=== PATIENT | male | born 1970 ===

== ENCOUNTER 2020-07-25 08:00 | Outpatient (REF) | payer OTHER, SELFPAY ==
[2020-07-25 09:30] LABS: Alanine Aminotransferase 21 U/L (0-40); Albumin Level 4.5 g/dL (3.5-5.0); Alkaline Phosphatase 97 U/L (39-117); Anion Gap 15 (12-20); Aspartate Amino Transferase 17 U/L (5-37); Bilirubin Total 0.6 mg/dL (0.0-1.0); Blood Urea Nitrogen 12 mg/dL (9-16); Calcium 9.3 mg/dL (8.4-10.2); Carbon Dioxide 24 mmol/L (22-29); Chloride 105 mmol/L (96-108); Cholesterol 149 mg/dL; Estimated Glomerular Filt Rate > 60; Glucose Fasting 97 mg/dL (60-99); HDL Cholesterol 38 mg/dL; LDL Cholesterol Calculated 93 mg/dl; Potassium 4.2 mmol/l (3.3-5.1); Sodium 140 mmol/L (135-145); Total Protein 6.9 g/dL (6.5-8.0); Triglycerides 93 mg/dL
== END 2020-07-25 08:01 | disposition home or self-care (01) ==
LOC: HO.LAB 08:00
PROVIDERS: Visit Provider Internal Medicine
DX: I10 Essential (primary) hypertension (principal)
CPT/HCPCS: 80053; 80061

== ENCOUNTER → 2020-07-27 07:38 | Outpatient (REF) | payer OTHER, SELFPAY ==
--- NOTE | 2020-07-27 07:43 | CA_ITS ---
Acquisition Time: 2020-07-27 08:54:25 Total Exercise Time: 00:10:11 Test Indications: Suspected Angina Medications: AMLODIPINE CITALOPRAM Protocol: DARRYL Max HR: 179 BPM 104% of Pred: 172 BPM Max BP: 152/064 mmHG Max Work Load: 12.0 METS Exercise stress test using Darryl protocol total of 10 min 11 sec. METS 12.0, MHR up to 179. Pt tolerated well, denies any anginal sx. EKG without any arrhythmia, no ischemic changes. Normotensive response to exercise. Test reviewed with Dr. Martin Referred By: Courtney Osborne Overread By: Kylie Wyatt
== END ==
LOC: HO.CARD 07:38
PROVIDERS: PCP Internal Medicine; Visit Provider Internal Medicine
DX: I20.8 Other forms of angina pectoris (principal)
CPT/HCPCS: 93017

== ENCOUNTER 2021-01-22 07:23 | Outpatient (REF) | payer OTHER, SELFPAY | END 2021-01-22 07:24 | disposition home or self-care (01) | LOC: HO.LAB 07:23 | PROVIDERS: PCP Internal Medicine; Visit Provider Internal Medicine | DX: Z20.822 Contact with and (suspected) exposure to COVID-19 (principal) | CPT/HCPCS: C9803; U0003; U0005 ==

== ENCOUNTER → 2021-05-03 10:57 | Outpatient (BNVA) | payer OTHER, SELFPAY | PROVIDERS: PCP Internal Medicine; Referring Provider Internal Medicine; Visit Provider Nurse Practitioner ==

== ENCOUNTER 2021-07-02 09:43 | Outpatient (REF) | payer OTHER, SELFPAY ==
[2021-07-02 10:00] LABS: MANUAL DIFF FLAG NO
[2021-07-02 10:51] LABS: Basophils Percent Auto 0.4 % (0-2); Eosinophils Absolute Auto 0.1 X10*3/uL (0.0-0.4); Eosinophils Percent Auto 0.9 % (0-4); Hematocrit 42.3 % (42.0-52.0); Hemoglobin 15.3 g/dl (14.0-18.0); Imm Gran Abs Auto 0.01 X10*3/uL (0.00-0.03); Imm Gran Pct Auto 0.1 % (0.0-0.4); Lymphocytes Absolute Auto 2.1 X10*3/uL (1.2-4.9); Lymphocytes Percent Auto 30.2 % (20-40); Mean Corpuscular HGB Conc 36.2 g/dl (31.0-36.0); Mean Corpuscular Hemoglobin 31.9 pg (27.0-33.0); Mean Corpuscular Volume 88.3 fL (80.0-98.0); Monocytes Absolute Auto 0.4 X10*3/uL (0.1-1.2); Monocytes Percent Auto 5.7 % (2-11); Neutrophils Absolute Auto 4.4 x10*3/uL (2.0-8.3); Neutrophils Percent Auto 62.7 % (45-73); Platelet Count 236 X10*3/uL (160-400); Red Blood Count 4.79 X10*6/uL (4.60-5.80); Red Cell Distribution Width 11.5 % (11.0-16.0)
[2021-07-02 11:21] LABS: Alanine Aminotransferase 25 U/L (0-40); Albumin Level 4.3 g/dL (3.5-5.0); Alkaline Phosphatase 110 U/L (39-117); Anion Gap 12 (12-20); Aspartate Amino Transferase 26 U/L (5-37); Bilirubin Total 0.6 mg/dL (0.0-1.0); Blood Urea Nitrogen 24 mg/dL (9-16); Calcium 9.2 mg/dL (8.4-10.2); Carbon Dioxide 26 mmol/L (22-29); Chloride 104 mmol/L (96-108); Estimated Glomerular Filt Rate > 60; Glucose Random 107 mg/dL (60-115); Potassium 4.4 mmol/L (3.3-5.1); Sodium 138 mmol/L (135-145); Total Protein 6.6 g/dL (6.5-8.0)
== END 2021-07-02 09:44 | disposition home or self-care (01) ==
LOC: HO.LAB 09:43
PROVIDERS: PCP Internal Medicine; Visit Provider Nurse Practitioner
DX: Z12.11 Encounter for screening for malignant neoplasm of colon (principal)
CPT/HCPCS: 36415; 80053; 85025

== ENCOUNTER 2021-07-18 07:28 | Day surgery (SDC) | payer OTHER, SELFPAY ==
[2021-07-10 14:23] VITALS: BMI 26.6
--- NOTE | 2021-07-17 10:26 | HO.ANESPROP2 ---
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 (Acute) RODRIGUEZ (generalized anxiety disorder) (Acute) Alcoholism (Acute) Severe major depression with psychotic features (Acute) Trigger finger of right hand (Acute) Past Medical History Medical History Alcoholism Angina at rest Essential hypertension RODRIGUEZ (generalized anxiety disorder) History of alcohol abuse 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 Brother No problems noted. Surgical History Surgical History H/O umbilical hernia repair History of esophagogastroduodenoscopy (EGD) Lipoma Social History Social History Housing: House Alcohol intake: former Year quit: 2020 Patient Tobacco Use Status: Never used Tobacco e-Cigarette/Vaping Use: Never Used Second Hand Smoke Exposure: No Are you DNR?: No Advance Directives: No Advance Directives Information Provided: Yes Advance Directives on File: No service: No Current occupational status: employed Current occupational exposures/hazards: No Meds Allergies Allergy/AdvReac Type Severity Reaction Status Date / Time No Known Allergies Allergy Verified 07/18/21 07:33 [No Known Allergies*] Exam Exam Date and Time: July 17, 2021 1026 Height,Weight and Vital Signs: Height 5 ft 6 in Weight 74.843 kg Pertinent Lab Results Pertinent Lab Results: Laboratory Tests 07/02/21 07/02/21 09:57 09:57 WBC 7.0 Hgb 15.3 Hct 42.3 Plt Count 236 Sodium 138 Potassium 4.4 Chloride 104 Carbon Dioxide 26 BUN 24 H D Creatinine 1.01 Estimated GFR > 60 Random Glucose 107 Calcium 9.2 Total Bilirubin 0.6 AST 26 D ALT 25 Alkaline Phosphatase 110 Total Protein 6.6 Albumin 4.3 Assessment and Plan Assessment Anesthesia Assessment: Chart Reviewed Documented by User: Rey Richardson MD 07/18/21 08:05 PMFSH Past Medical History Medical History Alcoholism Angina at rest Essential hypertension RODRIGUEZ (generalized anxiety disorder) History of alcohol abuse 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 Brother No problems noted. Surgical History Surgical History H/O umbilical hernia repair History of esophagogastroduodenoscopy (EGD) Lipoma Social History Social History Housing: House Alcohol intake: former Year quit: 2020 Patient Tobacco Use Status: Never used Tobacco e-Cigarette/Vaping Use: Never Used Second Hand Smoke Exposure: No Are you DNR?: No Advance Directives: No Advance Directives Information Provided: Yes Advance Directives on File: No service: No Current occupational status: employed Current occupational exposures/hazards: No Meds Allergies Allergy/AdvReac Type Severity Reaction Status Date / Time No Known Allergies Allergy Verified 07/18/21 07:33 [No Known Allergies*] Exam Airway Mallampati Class: II TM Dist: >3cm Neck ROM: Full
[2021-07-18 07:48] VITALS: BP 136/82; PULSE 80; RESP 20; TEMP 36.6; O2SAT 97
[2021-07-18] MEDS: Lactated Ringers 1,000 ML 100 ML IVCONT (07:57)
--- NOTE | 2021-07-18 08:33 | P.HPSUR_ITS ---
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 Severe major depression with psychotic features Trigger finger of right hand Vasectomy evaluation) History of Previous Operations: Relevant previous surgery/procedure and date(s) (H/O umbilical hernia repair History of esophagogastroduodenoscopy (EGD) Lipoma) Allergies: Allergies Allergy/AdvReac Type Severity Reaction Status Date / Time No Known Allergies Allergy Verified 07/18/21 07:33 [No Known Allergies*] Review of Systems Sugical H&P ROS: Negative: Constitution, Cardiovascular, Respiratory, Neurological, Psychiatric, Hem-Onc, Allergic/Immunologic, Gastrointestinal, Genitourinary, Musculoskeletal, Integumentary, Endocrine and Ey es/Ears/Nose/Throat Exam Surgical H&P Exam: Normal: HEENT, Normal: Heart, Normal: Lungs, Normal: Extremities, Normal: Abdomen, Normal: Skin and Normal: Neurological Plan Diagnosis/Plan: Unchanged I have reviewed the history and physical and performed a pertinent physical examination on my patient. No changes have occurred unless specified.
--- NOTE | 2021-07-18 08:34 | P.BOP_ITS ---
Brief Operative Note Date of Service: 07/18/21 Pre-op diagnosis: screen colon Post-op diagnosis: same Procedure: see op note Surgeon: Fe Alford MD Anesthesia: MAC Was an Radiation Oncology Manager used for this Procedure?: No Estimated blood loss (mL): 0 Condition: stable Disposition: PACU
--- NOTE | 2021-07-18 08:35 | P.OP_ITS ---
Operative Note Operative Note Date of Service: 07/18/21 Narrative: Operative Information Procedure Description: Colonoscopy COLONOSCOPY Instrument: Olympus variable stiffness pediatric scope 190L Colonoscopy Monitoring: Vital signs and clinical assessment, continuous EKG monitoring, Pulse oximetry, Carbon Dioxide monitoring and blood pressure monitoring were done throughout the procedure. Colon withdrawal time was 20 minutes. Procedure: The patient was placed in the left lateral decubitis position and pre-procedure medications were administered. After a digital rectal examination of the ano-rectum, the video colonoscope was inserted into the rectum and advanced through the colon to the cecum/TI. The colonoscope was slowly withdrawn in a retrograde panoramic fashion and the colon mucosa was carefully examined including a retroflexed view of the rectum. Findings and interventions are described below. Procedure Difficulty:easy Findings: Terminal Ileum-normal Cecum: 10 mm sessile polyp raised with orise and removed with cold snare but not retrieved Ascending Colon: 12 mm sessile polyp in distal area, removed with cold snare Transverse Colon -normal Descending Colon:normal Sigmoid Colon: distal sigmoid with 20 mm pedunculated polyp. The base was injected with few cc of epinephrine and then removed with hot snare. 3 clips applied to the base to redcue risk of post polypectomy bleeding Rectum: Retroflexion with small internal hemorrhoids, grade I, 14 mm semi pedunculated polyp remvoed with cold snare and x 2 clips applied for hemostasis Anorectum - normal Colon preparation: [place] Bowel Preparation Scale Right colon; 2 Transverse colon: 2 Left colon; 2 (0 = Unprepared colon segment with mucosa not seen due to solid stool that cannot be cleared. 1 = Portion of mucosa of the colon segment seen, but other areas of the colon segment not well seen due to staining, residual stool and/or opaque liquid. 2 = Minor amount of residual staining, small fragments of stool and/or opaque liquid, but mucosa of colon segment seen well. 3 = Entire mucosa of colon segment seen well with no residual staining, small fragments of stool or opaque liquid) Impression and Post Procedure Diagnosis: polyps internal hemorrhoids Plan: High fiber diet leaflet Avoid straining at stool, epsom salts and sitz bath, anusol supps or cream Repeat Colonoscopy in 6-12 months or earlier if clinically indicated avoid nsaids and aspirin for 5 days Above findings were reviewed with the patient and relevant handouts were provided if indicated.
[2021-07-18 09:18] VITALS: BP 100/53; PULSE 79; RESP 20; TEMP 36.2; O2SAT 100
[2021-07-18 09:34] VITALS: BP 106/68; PULSE 76; RESP 16; TEMP 36.2; O2SAT 99
== END 2021-07-18 09:56 | disposition home or self-care (01) ==
PROVIDERS: PCP Internal Medicine; Visit Provider Internal Medicine Gastroenterology
PROC: 0DJD8ZZ Inspection of Lower Intestinal Tract, Via Natural or Artificial Opening Endoscopic (ICD-10-PCS; CPT 45378; principal; 2021-07-18 08:30)
DX: Z12.11 Encounter for screening for malignant neoplasm of colon (principal); D12.2 Benign neoplasm of ascending colon; D12.8 Benign neoplasm of rectum; K63.5 Polyp of colon; K64.0 First degree hemorrhoids; I10 Essential (primary) hypertension; F33.3 Major depressive disorder, recurrent, severe with psychotic symptoms; F10.20 Alcohol dependence, uncomplicated
CPT/HCPCS: 45385; 45381; 88305; J0171

== ENCOUNTER 2021-12-26 09:13 | Outpatient (REF) | payer OTHER, SELFPAY ==
[2021-12-26 09:46] LABS: MANUAL DIFF FLAG NO
[2021-12-26 10:52] LABS: Basophils Absolute Auto 0.1 X10*3/uL (0.0-0.2); Basophils Percent Auto 0.8 % (0-2); Eosinophils Absolute Auto 0.1 X10*3/uL (0.0-0.4); Eosinophils Percent Auto 1.1 % (0-4); Hematocrit 45.5 % (42.0-52.0); Hemoglobin 16.6 g/dl (14.0-18.0); Imm Gran Abs Auto 0.02 X10*3/uL (0.00-0.03); Imm Gran Pct Auto 0.3 % (0.0-0.4); Lymphocytes Absolute Auto 1.9 X10*3/uL (1.2-4.9); Lymphocytes Percent Auto 29.3 % (20-40); Mean Corpuscular HGB Conc 36.5 g/dl (31.0-36.0); Mean Corpuscular Volume 84.9 fL (80.0-98.0); Mean Platelet Volume 10.8 fL (9.4-12.4); Monocytes Absolute Auto 0.4 X10*3/uL (0.1-1.2); Monocytes Percent Auto 6.4 % (2-11); Neutrophils Absolute Auto 4.1 x10*3/uL (2.0-8.3); Neutrophils Percent Auto 62.1 % (45-73); Platelet Count 269 X10*3/uL (160-400); Red Blood Count 5.36 X10*6/uL (4.60-5.80); Red Cell Distribution Width 12.2 % (11.0-16.0); White Blood Count 6.6 X10*3/uL (4.8-10.8)
[2021-12-26 11:14] LABS: Alanine Aminotransferase 32 U/L (0-40); Albumin Level 4.2 g/dL (3.5-5.0); Alkaline Phosphatase 92 U/L (39-117); Anion Gap 13 (12-20); Aspartate Amino Transferase 26 U/L (5-37); Bilirubin Total 0.9 mg/dL (0.0-1.0); Blood Urea Nitrogen 22 mg/dL (9-16); Calcium 9.5 mg/dL (8.4-10.2); Carbon Dioxide 24 mmol/L (22-29); Chloride 104 mmol/L (96-108); Cholesterol 134 mg/dL; Estimated Glomerular Filt Rate > 60; Glucose Fasting 88 mg/dL (60-99); HDL Cholesterol 32 mg/dL; LDL Cholesterol Calculated 87 mg/dl; Potassium 4.4 mmol/L (3.3-5.1); Sodium 137 mmol/L (135-145); Total Protein 6.6 g/dL (6.5-8.0); Triglycerides 79 mg/dL
[2021-12-26 12:50] LABS: Folate 18.7 ng/mL (> or = 4.0); Vitamin B12 1058 pg/mL (200-900)
[2022-01-02 12:39] LABS: Vitamin B1 12 nmol/L (8-30)
== END 2021-12-26 09:14 | disposition home or self-care (01) ==
LOC: HO.LAB 09:13
PROVIDERS: PCP Internal Medicine; Visit Provider Internal Medicine
DX: Z00.00 Encounter for general adult medical examination without abnormal findings (principal); F10.20 Alcohol dependence, uncomplicated; Z13.220 Encounter for screening for lipoid disorders
CPT/HCPCS: 36415; 80053; 80061; 82607; 82746; 84425; 85025

== ENCOUNTER 2022-11-17 09:01 | Outpatient (REF) | payer OTHER, SELFPAY ==
[2022-11-17 10:43] LABS: Alanine Aminotransferase 21 U/L (0-40); Albumin Level 4.1 g/dL (3.5-5.0); Alkaline Phosphatase 108 U/L (39-117); Anion Gap 10 (12-20); Aspartate Amino Transferase 19 U/L (5-37); Bilirubin Total 0.9 mg/dL (0.0-1.0); Blood Urea Nitrogen 13 mg/dL (9-16); Carbon Dioxide 27 mmol/L (22-29); Chloride 106 mmol/L (96-108); Cholesterol 159 mg/dL; Estimated Glomerular Filt Rate > 60; Glucose Fasting 94 mg/dL (60-99); HDL Cholesterol 35 mg/dL; LDL Cholesterol Calculated 110 mg/dl; Potassium 4.2 mmol/L (3.3-5.1); Sodium 139 mmol/L (135-145); Total Protein 6.2 g/dL (6.5-8.0); Triglycerides 71 mg/dL
== END 2022-11-17 09:02 | disposition home or self-care (01) ==
LOC: HO.LAB 09:01
PROVIDERS: PCP Internal Medicine; Visit Provider Internal Medicine
DX: Z00.00 Encounter for general adult medical examination without abnormal findings (principal); E78.5 Hyperlipidemia, unspecified
CPT/HCPCS: 36415; 80053; 80061

== ENCOUNTER 2023-04-28 10:14 | Outpatient (AMB) | payer BC, SELFPAY ==
[2023-04-28 10:18] VITALS: BP 124/86; PULSE 71; O2SAT 99; BMI 27.0
--- NOTE | 2023-04-28 10:18 | A.OFFPC_ITS ---
Vital Signs 04/28/23 10:18 Height 5 ft 6 in Weight 167 lb BMI 27.0 BP 124/86 Blood Pressure Location Lt brachial Position Sitting Pulse 71 Pulse Source Pulse Oximeter Temp Source Skin Pulse Oximetry (%) 99 Oxygen Delivery Method Room Air Intake Visit Reasons: Discuss Personal Matters Allergies No Known Allergies [No Known Allergies*] Allergy (Verified 04/28/23 10:26) Medication List - Last Reconciled 04/28/23 by VARUN Delacruz trazodone 100 mg PO BEDTIME PRN 90 days Tobacco use date assessed: 04/28/23 Dental Screening Dental Screen Date: 04/28/23 Did you have a dental visit in the last 12 months?: Yes Did you have a dental problem in the last 6 months where you did not have access to dental care?: No Was dental information given to patient?: Patient has dentist HPI Discuss Personal Matters HPI Details Patient is a 53-year-old male who presents today to discuss erectile dysfunction for the past [address] Dowd. Medical history significant for anxiety and insomnia. Patient reports he was not sexually active for the past 5 years and now he has a partner, and reports erectile dysfunction for the past 5 months. He reports that he is unable to perform about 3-5 times per week. Reports using [id number] medications with minimal improvement although he would like to talk with professional about this. Denies any cardiac conditions. Denies any urinary symptoms or penile discharge. 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 Brother No problems noted. Social History Housing: House Alcohol intake: former Year quit: 2020 Patient Tobacco Use Status: Never used Tobacco e-Cigarette/Vaping Use: Never Used Second Hand Smoke Exposure: No service: No Current occupational status: employed Current occupational exposures/hazards: No Cognitive needs: No Hearing needs: No Vision needs: No Questionnaire Thrive Questionnaire Date Thrive assessed: 11/17/22 AUDIT C Alcohol Use Questionnaire (AUDIT-C) 1. How often do you have a drink containing alcohol?: Never Total Score: 0 Score Reviewed/Action Taken: No RODRIGUEZ-7 AMB Questionnaire RODRIGUEZ-7 Date RODRIGUEZ - 7 assessed: 11/17/22 Source: Developed by Drs. Willi Gibbons, Davina Pope, Antoine Gross and colleagues, with an educational tray from [id number]. Review of Systems Const Denies body aches, Denies chills, Denies fatigue, Denies fever(s) and Denies headache(s) Eyes Denies change in vision ENT Denies dizziness, Denies otalgia, Denies headache(s), Denies nasal discharge, Denies sinus pain and Denies sore throat Card Denies chest pain, Denies edema, Denies lightheadedness and Denies dyspnea Resp Denies cough, Denies dyspnea and Denies wheezing GI Denies abdominal pain Denies dysuria Musc Denies myalgias, Denies numbness and Denies tingling Skin/Breast Denies rash Neuro Denies dizziness, Denies headache(s), Denies numbness and Denies tingling Endo Denies fatigue Aller/Immun Denies wheezing Physical exam (Primary Care) Vital Signs: Last Vital Signs Pulse 71 04/28/23 10:18 BP 124/86 04/28/23 10:18 Pulse Ox 99 04/28/23 10:18 Oxygen Delivery Method Room Air 04/28/23 10:18 BMI result Body Mass Index 27.0 Tobacco/Smoking Status: Tobacco use Status Tobacco use date assessed 04/28/23 04/28/23 10:21 Patient Tobacco Use Status Never used Tobacco 04/28/23 10:21 e-Cigarette/Vaping Use Never Used 04/28/23 10:21 Thrive Assessment: Date of Thrive Assessment Date Thrive assessed 11/17/22 04/28/23 10:21 Const General: cooperative and no acute distress Orientation/consciousness: patient oriented x3 HENMT Head: Yes normocephalic and Yes atraumatic Mouth: oropharynx normal and moist mucous membranes Throat: Yes posterior oropharynx normal Eyes General: appearance normal, both eyes and all related structures Neck Neck: Yes normal visual inspection, Yes full ROM and Yes no lymphadenopathy Resp Effort & Inspection: normal respiratory effort and able to speak in complete sentences Auscultation: clear to auscultation bilaterally, no crackles, no rales, no rhonchi and no wheezes Cardio Rate: regular rate Rhythm: regular rhythm Heart sounds: S1 normal heart sound present, S2 normal heart sound present and no murmurs GI Auscultation: normal bowel sounds Skin General skin exam: no rashes or lesions noted Neuro General: patient oriented x3 Gait exam (Neuro): Normal gait present Extrem General: Yes full ROM and No edema Assessment and Plan Assessment & Plan (1) Erectile dysfunction: Code(s): N52.9 - Male erectile dysfunction, unspecified Plan: Will check testosterone level. Start Viagra daily p.r.n.-educated about possible adverse reactions and when to notify provider or go to the emergency department. Patient agreed with the plan. Patient was educated not to take any [id number] medications for erectile dysfunction when taking Viagra. Orders: Orders Testosterone, Total Today N52.9 - Male erectile dysfunction, unspecified Medications: New sildenafil (Viagra) administer 30 minutes to 4 hours before activity 25 mg PO DAILY PRN 30 tabs 0RF sexual activity N52.9 - Male erectile dysfunction, unspecified Coding Level of Care Code Est Pt Level 3 (11726) Diagnoses Erectile dysfunction N52.9
== END 2023-04-28 11:32 | disposition home or self-care (01) ==
PROVIDERS: PCP Internal Medicine; Visit Provider Nurse Practitioner Family
DX: N52.9 Male erectile dysfunction, unspecified (principal)
CPT/HCPCS: 99213

== ENCOUNTER 2023-04-28 10:50 | Outpatient (REF) | payer BC, SELFPAY ==
[2023-05-02 16:08] LABS: Testosterone, Total 388 ng/dL (250-1100)
== END 2023-04-28 10:51 | disposition home or self-care (01) ==
LOC: HO.LAB 10:50
PROVIDERS: PCP Internal Medicine; Visit Provider Nurse Practitioner Family
DX: N52.9 Male erectile dysfunction, unspecified (principal)
CPT/HCPCS: 36415; 84403

== ENCOUNTER 2023-11-18 08:51 | Outpatient (AMB) | payer BC, SELFPAY ==
--- NOTE | 2023-11-18 08:53 | A.OFFPC_ITS ---
Vital Signs 11/18/23 08:55 Height 5 ft 6 in Weight 175 lb BMI 28.2 BP 122/86 Blood Pressure Location Lt brachial Position Sitting Intake Visit Reasons: PE Intake Note: Patient here for a physical exam Bladder Tier Required: No Accompanied by: Self / Same As Patient Allergies No Known Allergies [No Known Allergies*] Allergy (Verified 11/18/23 09:08) Medication List - Last Reconciled 11/18/23 by Courtney Osborne MD trazodone 100 mg PO BEDTIME PRN 90 days Tobacco use date assessed: 11/18/23 Dental Screening Dental Screen Date: 11/18/23 Did you have a dental visit in the last 12 months?: Yes Did you have a dental problem in the last 6 months where you did not have access to dental care?: No Was dental information given to patient?: Patient has dentist HPI HPI Comments History of Present Illness Details This is a 53-year-old male with alcoholism, insomnia due to alcohol and moderate major depression that comes for his physical exam. He was advised to cut down on his drinking alcohol and was referred to addiction Medicine. Insomnia stable with trazodone. Still has moderate major depression with occasional suicidal thoughts and Randy Viirdiana from Behavioral Health will talk with him today after his physical exam in the office. Denies any chest pain or shortness of breath. Last colonoscopy was 2020 and had to go back in 6-12 months but he did not. I will refer him again. 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 Brother No problems noted. Social History Housing: House Alcohol intake: current Alcohol intake frequency: a few times a week Alcohol type: beer Patient Tobacco Use Status: Never used Tobacco e-Cigarette/Vaping Use: Never Used Second Hand Smoke Exposure: No service: No Current occupational status: employed Current occupational exposures/hazards: No Cognitive needs: No Hearing needs: No Vision needs: No Questionnaire PHQ-9 Over the last 2 weeks, how often have you been bothered by any of the following problems? 1. Little interest or pleasure in doing things: more than half the days 2. Feeling down, depressed, or hopeless: more than half the days 3. Trouble falling or staying asleep, or sleeping too much: more than half the days 4. Feeling tired or having little energy: more than half the days 5. Poor appetite or overeating: more than half the days 6. Feeling bad about yourself - or that you are a failure or have let yourself or your family down: more than half the days 7. Trouble concentrating on things, such as reading the newspaper or watching television: more than half the days 8. Moving or speaking so slowly that other people could have noticed. Or the opposite - being so fidgety or restless that you have been moving around a lot more than usual: more than half the days 9. Thoughts that you would be better off or of hurting yourself in some way: several days Total score: 17 Depression Screening Interpretation: Positive (occasional suicidal thoughts) Depression Screening Follow-up: Existing condition Depression Screening Done: Yes 95275 - PHQ-9 Billing: Yes Source: Developed by Drs. Willi Gibbons, Davina Pope, Antoine Gross and colleagues, with an educational tray from [employer]. Thrive Questionnaire Date Thrive assessed: 11/18/23 I am a: Patient What is your living situation today?: I have a steady place to live Within the past 12 months, did the food you bought not last and you didn't have the money to get more?: Never true Within the past 12 months, did you worry whether your food would run out before you got money to buy more?: Never true Do you have trouble paying for medicines?: No Do you have trouble getting transportation to medical appointments?: No Do you have trouble paying your heating and electricity bill?: No Do you have trouble taking care of your child, family member or friend?: No Do you have trouble with day-to-day activities such as bathing, preparing meals, shopping, managing finances, etc.?: No Are you currently unemployed and looking for a job?: No Are you interested in more education?: No Please select the resources that you would like help with: None Currently or been in a relationship where the following occur: no concerns reported THRIVE Score: 0 AUDIT C Alcohol Use Questionnaire (AUDIT-C) 1. How often do you have a drink containing alcohol?: 4 or more times a week 2. How many drinks containing alcohol do you have on a typical day when you are drinking?: 5 or 6 3. How often do you have six or more drinks on one occasion?: Weekly Total Score: 9 Score Reviewed/Action Taken: Yes RODRIGUEZ-7 AMB Questionnaire RODRIGUEZ-7 Date RODRIGUEZ - 7 assessed: 11/18/23 Feeling nervous, anxious, or on edge: 2 = More than half the days Not being able to stop or control worryin = More than half the days Worrying too much about different things: 2 = More than half the days Trouble relaxin = More than half the days Being so restless that it is hard to sit still: 1 = Several days Becoming easily annoyed or irritable: 2 = More than half the days Feeling afraid as if something awful might happen: 2 = More than half the days Total RODRIGUEZ-7 score (0-4 normal; 5-9 mild; 10-14 moderate; 15-21 severe): 13 Source: Developed by Drs. Willi Gibbons, Davina Pope, Antoine Gross and colleagues, with an educational tray from [employer]. RODRIGUEZ-7 Assessment Billing RODRIGUEZ-7 Assessment Tool: RODRIGUEZ-7 Assessment 80215 Review of Systems Const All systems reviewed & are unremarkable except as noted in HPI and below Eyes Reports no additional complaints, Denies change in vision and Denies other visual disturbances Card Denies chest pain at rest, Denies chest pain with activity, Denies edema, Denies irregular heart rhythm, Denies claudication, Denies dyspnea, Denies dyspnea on exertion, Denies orthopnea, Denies paroxysmal nocturnal dyspnea and Denies slow heart rate Resp Denies cough, Denies dyspnea and Denies dyspnea on exertion GI Denies abdominal pain, Denies change in bowel habits, Denies excessive flatus, Reports diarrhea, Denies nausea and Denies vomiting Denies urinary hesitancy, Denies urinary incontinence and Denies urinary urgency Psych Reports abnormal sleep pattern and Reports depression Physical exam (Primary Care) Vital Signs: Last Vital Signs BP 122/86 11/18/23 08:55 BMI result Body Mass Index 28.2 Tobacco/Smoking Status: Tobacco use Status Tobacco use date assessed 11/18/23 11/18/23 09:03 Patient Tobacco Use Status Never used Tobacco 11/18/23 09:03 e-Cigarette/Vaping Use Never Used 11/18/23 09:03 PHQ-9: PHQ-9 Score PHQ-9: Total score 17 11/18/23 09:13 Depression Screening Interpretation: Positive (occasional suicidal thoughts) Dep ression Screening Follow-up: Existing condition Thrive Assessment: Date of Thrive Assessment Date Thrive assessed 11/18/23 11/18/23 09:03 Currently or been in a relationship where the following occur: no concerns reported Const Orientation/consciousness: patient oriented x3 HENMT Head: Yes normal to inspection, Yes normocephalic and Yes atraumatic Ears: external ears normal Eyes General: appearance normal, both eyes and all related structures Eyelids: Yes eyelids normal Conjunctivae: conjunctivae normal Neck Neck: Yes normal visual inspection and Yes supple Resp Effort & Inspection: normal respiratory effort Auscultation: clear to auscultation bilaterally Cardio Jugular venous distension: no JVD Rate: regular rate Rhythm: regular rhythm Heart sounds: S1 normal heart sound present and S2 normal heart sound present GI Inspection: Yes normal to inspection Palpation (GI): Soft to palpation and nontender Auscultation: normal bowel sounds Skin General skin exam: no rashes or lesions noted Neuro General: patient oriented x3 and no focal motor deficits Extrem General: Yes full ROM Psych Appearance: grossly normal Affect: Sad affect present Assessment and Plan Assessment & Plan (1) Physical exam: Code(s): Z00.00 - Encounter for general adult medical examination without abnormal findings Plan: Repeat in a year. (2) Alcoholism: Code(s): F10.20 - Alcohol dependence, uncomplicated Plan: Was advised to cut down on drinking alcohol. Was referred to addiction Medicine. 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 (4) Moderate major depression: Code(s): F32.1 - Major depressive disorder, single episode, moderate Plan: Saw by Behavioral Health in office today. Orders: Orders Comprehensive [place]. Panel Fast Today Z00.00 - Encounter for general adult medical examination without abnormal findings Lipid Panel Today Z00.00 - Encounter for general adult medical examination without abnormal findings Vitamin B1 Today F10.20 - Alcohol dependence, uncomplicated US abdomen comp w elastography Today F10.20 - Alcohol dependence, uncomplicated Complete Blood Count Auto Diff Today F10.20 - Alcohol dependence, uncomplicated Referrals Addiction Medicine Referral F10.20 - Alcohol dependence, uncomplicated Open Access Screening Colonoscopy Referral Z12.11 - Encounter for screening for malignant neoplasm of colon Coding Level of Care Code Est Pt Prev Care 40-64y(67285) Diagnoses Physical exam Z00.00 Alcoholism F10.20 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
[2023-11-18 08:55] VITALS: BP 122/86; BMI 28.2
== END 2023-11-18 09:32 | disposition home or self-care (01) ==
PROVIDERS: Visit Provider Internal Medicine
DX: Z00.00 Encounter for general adult medical examination without abnormal findings (principal); F10.982 Alcohol use, unspecified with alcohol-induced sleep disorder; F32.1 Major depressive disorder, single episode, moderate
CPT/HCPCS: 99396

== ENCOUNTER 2023-11-23 07:39 | Outpatient (REF) | payer BC, SELFPAY ==
[2023-11-23 08:32] LABS: Basophils Percent Auto 0.6 % (0-2); Eosinophils Absolute Auto 0.1 X10*3/uL (0.0-0.4); Eosinophils Percent Auto 0.9 % (0-4); Hematocrit 41.5 % (42.0-52.0); Imm Gran Abs Auto 0.04 X10*3/uL (0.00-0.03); Imm Gran Pct Auto 0.6 % (0.0-0.4); Lymphocytes Absolute Auto 2.6 X10*3/uL (1.2-4.9); Lymphocytes Percent Auto 40.7 % (20-40); MANUAL DIFF FLAG SCAN; Mean Corpuscular Volume 87.2 fL (80.0-98.0); Monocytes Absolute Auto 0.4 X10*3/uL (0.1-1.2); Monocytes Percent Auto 5.7 % (2-11); Neutrophils Absolute Auto 3.3 x10*3/uL (2.0-8.3); Neutrophils Percent Auto 51.5 % (45-73); Platelet Count 247 X10*3/uL (160-400); Red Blood Count 4.76 X10*6/uL (4.60-5.80); Red Cell Distribution Width 12.1 % (11.0-16.0); SCAN SMEAR FLAG 1; White Blood Count 6.5 X10*3/uL (4.8-10.8)
[2023-11-23 08:35] LABS: Alanine Aminotransferase 43 U/L (0-40); Albumin Level 4.1 g/dL (3.5-5.0); Alkaline Phosphatase 104 U/L (39-117); Anion Gap 13 (12-20); Aspartate Amino Transferase 30 U/L (5-37); Bilirubin Total 0.9 mg/dL (0.0-1.0); Blood Urea Nitrogen 17 mg/dL (9-16); Carbon Dioxide 24 mmol/L (22-29); Chloride 103 mmol/L (96-108); Cholesterol 191 mg/dL (<200); Estimated Glomerular Filt Rate > 60; Glucose Fasting 106 mg/dL (60-99); HDL Cholesterol 30 mg/dL (>40); Potassium 3.7 mmol/L (3.3-5.1); Sodium 136 mmol/L (135-145); Total Protein 6.9 g/dL (6.5-8.0); Triglycerides 904 mg/dL (<150)
[2023-11-23 08:52] LABS: Hemoglobin 13.9 g/dl (14.0-18.0); Mean Corpuscular Hemoglobin 29.2 pg (27.0-33.0)
[2023-11-23 08:53] LABS: Mean Corpuscular HGB Conc 33.5 g/dl (31.0-36.0)
[2023-11-23 09:17] LABS: SLIDE REVIEW VERIFIED
[2023-11-27 15:49] LABS: Vitamin B1 14 nmol/L (8-30)
== END 2023-11-23 07:40 | disposition home or self-care (01) ==
LOC: HO.LAB 07:39
PROVIDERS: PCP Internal Medicine; Visit Provider Internal Medicine
DX: Z00.00 Encounter for general adult medical examination without abnormal findings (principal); F10.20 Alcohol dependence, uncomplicated
CPT/HCPCS: 36415; 80053; 80061; 84425; 85025

== ENCOUNTER 2023-12-11 07:40 | Outpatient (REF) | payer BC, SELFPAY ==
--- NOTE | ~2023-12-11 | US_ITS ---
EXAMINATION: US COMPLETE ABDOMEN WITH LIVER ELASTOGRAPHY CLINICAL INFORMATION: Alcohol dependence. COMPARISON: None available. TECHNIQUE: Real-time imaging of the abdominal viscera. Noninvasive ultrasound liver fibrosis assessment is performed using Hanna ElastPQ point quantification shear wave elastography (2D-SWE) with a C5-2 MHz transducer. Multiple elastography samples are obtained. FINDINGS: PANCREAS: Normal. The visualized pancreatic head and body are normal in appearance. The remainder of the pancreas is obscured from visualization by the overlying bowel gas. ABDOMINAL AORTA: The proximal, middle, and distal aortic segments are normal in caliber. INFERIOR VENA CAVA: Visualized portions are normal. LIVER: The liver demonstrates normal size, contour and generally increased echogenicity. No focal lesion or intrahepatic biliary duct dilatation. The right lobe measures 16.5 cm in length. The left lobe measures 11.6 cm in length. Portal flow is towards the liver (hepatopetal). Shear wave liver elastography median stiffness is 1.56 m/s (reference: normal median stiffness is 1.3 m/s or less). IQR/median stiffness to assess sampling precision is 0.12 (reference: good quality data set is IQR/median stiffness of 0.15 or less). GALLBLADDER: There are shadowing gallstones, and some gallbladder sludge is noted. There are no polyps, wall thickening or pericholecystic fluid. COMMON BILE DUCT: Normal in caliber measuring 0.3 cm in diameter. RIGHT KIDNEY: Normal. No hydronephrosis. No renal calculi or focal parenchymal lesions. The kidney measures 11.5 cm in maximum dimension. LEFT KIDNEY: Normal. No hydronephrosis. No renal calculi or focal parenchymal lesions. The kidney measures 12.1 cm in maximum dimension. SPLEEN: Normal. The spleen measures 12.3 cm in maximum dimension. FREE FLUID: None. US/US abdomen comp w elastography IMPRESSION: 1. There is generalized increase in hepatic echotexture, consistent with fatty infiltration or hepatocellular disease. Please correlate clinically. No focal hepatic mass or intrahepatic biliary dilatation is seen. 2. Liver elastography: In the absence of other known clinical signs, measurements rule out compensated advanced chronic liver disease. If there are known clinical signs, further testing may be needed for confirmation. 3. Cholelithiasis and gallbladder sludge are noted. REFERENCE: Society of Radiologists in Ultrasound Liver Stiffness Thresholds (2020): LIVER STIFFNESS THRESHOLDS: *Liver Stiffness equal or less than 1.3 m/s: High probability of being normal. *Liver Stiffness less than 1.7 m/s: In the absence of other known clinical signs, rules out compensated advanced chronic liver disease. *Liver Stiffness 1.7-2.1 m/s: Suggestive of compensated advanced chronic liver disease but need further test for confirmation. *Liver Stiffness over 2.1 m/s: Rules in compensated advanced chronic liver disease. *Liver Stiffness over 2.4 m/s: Suggestive of clinically significant portal hypertension. QUALITY OF DATA SET: *IQR/Median value equal or less than 0.15 implies a quality data set. *IQR/Median value over 0.15 implies a poor quality data set. SIGNIFICANT CHANGE FROM PRIOR EXAM: Significant change if liver stiffness measurement is 10% or greater from prior exam. OTHER CONSIDERATIONS: The stage of liver fibrosis may be overestimated in the setting of acute hepatitis, liver inflammation, elevated liver function tests, hepatic vascular congestion, obstructive cholestasis, non-fasting state, and infiltrative diseases such as amyloidosis and lymphoma. In some patients with NAFLD, the liver stiffness thresholds for compensated advanced chronic liver disease may be lower. In causes other than viral hepatitis and NAFLD, liver stiffness thresholds are not well established.
== END 2023-12-11 07:41 | disposition home or self-care (01) ==
LOC: HO.US 07:40
PROVIDERS: PCP Internal Medicine; Visit Provider Internal Medicine
DX: F10.20 Alcohol dependence, uncomplicated (principal)
CPT/HCPCS: 76700; 76981

== ENCOUNTER 2024-01-19 08:06 | Outpatient (AMB) | payer BC, SELFPAY ==
--- NOTE | 2024-01-19 08:10 | MHC.OFFVIS ---
Vital Signs 01/19/24 08:12 Height 5 ft 6 in Weight 169 lb 12.095 oz BMI 27.4 BP 118/88 Blood Pressure Location Lt brachial Position Sitting Pulse 75 Intake Visit Reasons: Fatty liver Intake Note: Dickson presents in the office as a follow up regarding fatty liver. CC: he states he is not having any symptoms at this time. Allergies No Known Allergies [No Known Allergies*] Allergy (Verified 01/19/24 08:12) HPI HPI Fatty liver: Details: Assessment & Plan (1) Colon cancer screening: ?Code(s): Z12.11 - Encounter for screening for malignant neoplasm of colon ?Plan: This is his first colonoscopy. He stopped ETOH for 8 months and started again but cut back a lot, he will have 56oz wine in a sitting (2 bx 7 oz wine x4 in a box). He will have diarrhea on when he drinks ETOH a lot and then some bleeding that resolves when he does not drink, no upper GI problems. He denies any prior problems with anesthesia or sedation. He denies any cardiac or respiratory problems. No ID problems. There is no known FHX of CRC or polyps. (2) Alcoholism: ?Code(s): F10.20 - Alcohol dependence, uncomplicated ? ? ? Orders:?Orders Comprehensive Met. Panel Today Z12.11 - Encounter for screening for malignant neoplasm of colon ? Complete Blood Count Auto Diff Today Z12.11 - Encounter for screening for malignant neoplasm of colon ? Medications:?New bisacodyl (Dulcolax (bisacodyl)) 10 mg (2 x 5 mg) PO BEDTIME 2 days 4 tabs 0RF ? ? peg 3350-electrolytes 236-22.74-6.74 -5.86 gram (Golytely) ?? until fecal effluent is clear; do not exceed a total volume of 2,000 mL 240 mL? PO Q10M 1 day 4,000 mL 0RF Z12.11 - Encounter for screening for malignant neoplasm of colon ? LABS: Laboratory Tests 11/23/23 07:55 WBC 6.5 Hgb 13.9 L Hct 41.5 L MCV 87.2 MCH 29.2 Estimated GFR > 60 Total Bilirubin 0.9 AST 30 ALT 43 H Alkaline Phosphatase 104 COLONOSCOPY Findings: Terminal Ileum-normal Cecum: 10 mm sessile polyp raised with orise and removed with cold snare but not retrieved Ascending Colon: 12 mm sessile polyp in distal area, removed with cold snare Transverse Colon -normal Descending Colon:normal Sigmoid Colon: distal sigmoid with 20 mm pedunculated polyp. The base was injected with few cc of epinephrine and then removed with hot snare. 3 clips applied to the base to redcue risk of post polypectomy bleeding Rectum: Retroflexion with small internal hemorrhoids, grade I, 14 mm semi pedunculated polyp remvoed with cold snare and x 2 clips applied for hemostasis Anorectum - normal Impression and Post Procedure Diagnosis: polyps internal hemorrhoids Plan: High fiber diet leaflet Avoid straining at stool, epsom salts and sitz bath, anusol supps or cream Repeat Colonoscopy in 6-12 months or earlier if clinically indicated avoid nsaids and aspirin for 5 days BIOPSY Collected: 07/18/21 Location: .[facility] Received: 07/18/21 Diagnosis A.? Colon, ascending, polypectomy:? Tubular adenoma, multiple fragments; negative for high-grade dysplasia. B.? Rectum, polypectomy:? Tubular adenoma; negative for high-grade dysplasia. C.? Colon, sigmoid, polypectomy:? Benign hamartomatous polyp. TODAYS VISIT He will have diarrhea on when he drinks ETOH a lot and then some bleeding that resolves when he does not drink, no upper GI problems. He denies any prior problems with anesthesia or sedation. He does have a history of alcohol abuse. He denies any cardiac or respiratory problems. No ID problems. He has a history of a large TA removed in 2020. 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 Brother No problems noted. Social History Housing: House Alcohol intake: current Alcohol intake frequency: a few times a week Alcohol type: beer Patient Tobacco Use Status: Never used Tobacco e-Cigarette/Vaping Use: Never Used Second Hand Smoke Exposure: No service: No Current occupational status: employed Current occupational exposures/hazards: No Cognitive needs: No Hearing needs: No Vision needs: No Review of Systems Const Denies fatigue, Denies fever(s), Denies night sweats, Denies poor appetite and Denies weight loss ENT Reports Normal hearing present, Denies dental pain, Denies dysphagia, Denies hearing loss, Denies mouth pain, Denies odynophagia, Denies throat swelling, Denies tongue swelling and Reports other (Dentition adequate) Card Reports no additional complaints Resp Reports no additional complaints GI Details: Denies abdominal pain, Denies melena, Denies bloating, Denies hematochezia, Denies constipation, Denies GI cramping, Denies dysphagia, Denies excessive flatus, Denies early satiety, Denies heartburn, Reports diarrhea, Denies nausea, Denies odynophagia, Denies vomiting and Denies hematemesis Skin/Breast Denies pruritus, Denies lesions, Denies rash and Denies jaundice Neuro Reports Normal hearing present and Denies Abnormal speech present Endo Denies fatigue Aller/Immun Denies throat swelling and Denies tongue swelling Physical Exam Vital Signs: Last Vital Signs Pulse 75 01/19/24 08:12 BP 118/88 01/19/24 08:12 BMI result Body Mass Index 27.4 Const General: cooperative, no acute distress, well developed and well groomed Nutritional Appearance: average body habitus and well nourished Orientation/consciousness: oriented to person, oriented to place and oriented to time Limitations: No language barrier HEENT Head: Yes normocephalic and Yes atraumatic Eyes General: appearance normal, both eyes and all related structures Pupils: Equal, round and reactive pupils present Neck Neck: Yes normal visual inspection and Yes no lymphadenopathy Thyroid: Thyroid normal Resp Effort & Inspection: normal respiratory effort and able to speak in complete sentences Auscultation: clear to auscultation bilaterally Cardio Rate: regular rate Rhythm: regular rhythm Heart sounds: Normal, physiologic split S2 sound present Peripheral pulses: radial pulses present and posterior tibial pulses present GI Inspection: No distended and No Abdominal panniculus present Palpation (GI): Soft to palpation, nontender, no guarding, not rigid and No hepatosplenomegaly present Percussion: Yes normal to percussion Auscultation: normal bowel sounds Rectal Exam - Male: Yes deferred Skin General skin exam: no rashes or lesions noted, turgor normal, skin not dry, no jaundice, No spider nevi and no striae Rashes: no rashes Nails: normal Neuro General: oriented to person, oriented to place and oriented to time Cranial nerves: Yes Equal, round and reactive pupils present and Yes Normal hearing present Speech: No Abnormal speech present Extrem General: Yes normal to inspection, No clubbing, No cyanosis and No edema Psych Appearance: grossly normal and well kempt Mental Status: mental status grossly normal Speech and movement: Normal speech and movement present Affect: normal affect Attitude: cooperative Thought process: Normal thought process present and not confabulating Thought content: Normal thought content present Insight: Limited insight present (Psych) Judgement: Limited judgement present (Psych) Results Reviewed Results Reviewed: Laboratory Tests 11/23/23 07:55 WBC 6.5 Hgb 13.9 L Hct 41.5 L MCV 87.2 MCH 29.2 Estimated GFR > 60 Total Bilirubin 0.9 AST 30 ALT 43 H Alkaline Phosphatase 104 Assessment & Plan Assessment & Plan (1) Pre-op examination: Code(s): Z01.818 - Encounter for other preprocedural examination Category: Medical (2) Tubular adenoma of colon: Comment: 2020 scope equals large TA in 2020 repeat in 3 years Code(s): D12.6 - Benign neoplasm of colon, unspecified Category: Medical (3) Fatty liver: Code(s): K76.0 - Fatty (change of) liver, not elsewhere classified Category: Medical (4) Alcoholism: Code(s): F10.20 - Alcohol dependence, uncomplicated Category: Medical Plan He will have diarrhea on when he drinks ETOH a lot and then some bleeding that resolves when he does not drink, no upper GI problems. He denies any prior problems with anesthesia or sedation. He does have a history of alcohol abuse. He denies any cardiac or respiratory problems. No ID problems. He has a history of a large TA removed in 2020. Orders: Orders Colonoscopy - GI Use Only Today D12.6 - Benign neoplasm of colon, unspecified Medications: New sod sulf-pot chloride-mag sulf 1.479-0.188- 0.225 gram (Sutab) PO PER PKG DIR for colonoscopy prep 24 tabs 0RF Coding Level of Care Code New Pt Level 3 (19306) Diagnoses Pre-op examination Z01.818 Tubular adenoma of colon D12.6 Fatty liver K76.0 Alcoholism F10.20
[2024-01-19 08:12] VITALS: BP 118/88; PULSE 75; BMI 27.4
== END 2024-01-19 08:40 | disposition home or self-care (01) ==
PROVIDERS: PCP Internal Medicine; Referring Provider Internal Medicine; Visit Provider Nurse Practitioner
DX: K76.0 Fatty (change of) liver, not elsewhere classified (principal); F10.20 Alcohol dependence, uncomplicated; Z86.010 Personal history of colon polyps
CPT/HCPCS: 99214

== ENCOUNTER → 2024-01-19 08:06 | Outpatient (BNVA) | payer BC, SELFPAY | PROVIDERS: PCP Internal Medicine; Visit Provider Nurse Practitioner ==

== ENCOUNTER 2024-05-26 10:01 | Outpatient (AMB) | payer BC, SELFPAY ==
[2024-05-26 10:04] VITALS: BP 120/82; BMI 27.8
--- NOTE | 2024-05-26 10:04 | A.OFFPC_ITS ---
Vital Signs 05/26/24 10:04 Height 5 ft 6 in Weight 172 lb BMI 27.8 BP 120/82 Blood Pressure Location Lt brachial Position Sitting Intake Visit Reasons: 6month follow up Intake Note: Patient here for a 6 month follow up Senior Accounting Manager Required: No Accompanied by: Self / Same As Patient Allergies No Known Allergies [No Known Allergies*] Allergy (Verified 05/26/24 10:25) Medication List - Last Reconciled 05/26/24 by Courtney Osborne MD fenofibrate 54 mg PO DAILY 90 days sildenafil mg PO sod sulf-pot chloride-mag sulf 1.479-0.188- 0.225 gram (Sutab) PO PER PKG DIR for colonoscopy prep trazodone 100 mg PO BEDTIME PRN 90 days Tobacco use date assessed: 11/18/23 Dental Screening Dental Screen Date: 05/26/24 Did you have a dental visit in the last 12 months?: No Did you have a dental problem in the last 6 months where you did not have access to dental care?: No Was dental information given to patient?: Patient has dentist HPI HPI Comments History of Present Illness Details This is a 54-year-old male with hypertriglyceridemia, insomnia due to alcohol, alcoholism and moderate major depression that comes today for follow-up on his conditions. I order a lipid panel to recheck triglycerides. Insomnia has improved with trazodone. Depression still present and would like counseling. He has cut down on drinking alcohol but still drinks. Denies any chest pain or shortness on breath. 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 Brother No problems noted. Social History (Reviewed 05/26/24 @ 10:05 by FORREST Ortiz Housing: House Alcohol intake: current Alcohol intake frequency: a few times a week Alcohol type: beer Patient Tobacco Use Status: Never used Tobacco e-Cigarette/Vaping Use: Never Used Second Hand Smoke Exposure: No service: No Current occupational status: employed Current occupational exposures/hazards: No Cognitive needs: No Hearing needs: No Vision needs: No Questionnaire Thrive Questionnaire Date Thrive assessed: 11/18/23 Are you currently unemployed and looking for a job?: No RODRIGUEZ-7 AMB Questionnaire RODRIGUEZ-7 Date RODRIGUEZ - 7 assessed: 11/18/23 Source: Developed by Drs. Willi Gibbons, Davina Pope, Antoine Gross and colleagues, with an educational tray from [employer]. Review of Systems Const All systems reviewed & are unremarkable except as noted in HPI and below Card Denies chest pain at rest, Denies chest pain with activity, Denies edema, Denies irregular heart rhythm, Denies claudication, Denies dyspnea, Denies dyspnea on exertion, Denies orthopnea, Denies paroxysmal nocturnal dyspnea and Denies slow heart rate Resp Denies cough, Denies dyspnea and Denies dyspnea on exertion GI Denies abdominal pain, Denies change in bowel habits, Denies excessive flatus, Denies nausea and Denies vomiting Denies urinary hesitancy, Denies urinary incontinence and Denies urinary urgency Musc Denies atrophy, Denies deformity and Denies limited range of motion Skin/Breast Denies bleeding lesions, Denies changing lesions and Denies rash Psych Reports anxiety and Reports depression Physical exam (Primary Care) Vital Signs: Last Vital Signs BP 120/82 05/26/24 10:04 BMI result Body Mass Index 27.8 BMI Assessment/Plan discussion: High BMI High, discussed plan: lifestyle, weight reduction, dietary and physical activity Tobacco/Smoking Status: Tobacco use Status Tobacco use date assessed 11/18/23 05/26/24 10:05 Patient Tobacco Use Status Never used Tobacco 05/26/24 10:05 e-Cigarette/Vaping Use Never Used 05/26/24 10:05 Thrive Assessment: Date of Thrive Assessment Date Thrive assessed 11/18/23 05/26/24 10:05 Resp Effort & Inspection: normal respiratory effort Auscultation: clear to auscultation bilaterally Cardio Jugular venous distension: no JVD Rate: regular rate Rhythm: regular rhythm Heart sounds: S1 normal heart sound present and S2 normal heart sound present Extrem General: Yes full ROM Psych Affect: Sad affect present Office Procedures Flu Questionnaire Does the patient have a severe egg allergy?: No Does the patient have severe life threatening allergies?: No Does the patient have a fever or illness today?: No Has the patient ever had Guillain-Clarendon Syndrome?: No Has the patient ever had any past reaction to a flu shot?: No Immunizations Fluarix Triv [id number] (PF) 45 mcg (15 mcg x 3)/0.5 mL IM syringe Performing Provider: Courtney Osborne MD Performing Location: [facility] [place] [facility] Administered by: WENDY Ortiz on 05/26/24 10:34 Dose Route Admin Location Dispensed Lot Number Expiration Date [employer] Foundry Technician 0.5 mL IM Left Deltoid 0.5 mL [id number] 02/13/25 [id number] [employer] VIS Given Date VIS Provided VIS Publication Date 05/26/24 Single Vaccine 21 Eligibility Eligibility Date Funding Source Not [facility] Eligible 05/26/24 Private Coding Level of Care Code Est Pt Level 4 (10299) Complex EM visit Add On G2211 Diagnoses Moderate major depression F32.1 Alcoholism F10.20 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 F10.982 Hypertriglyceridemia E78.1 Time Spent (min) 22 Assessment & Plan Assessment & Plan (1) Moderate major depression: Code(s): F32.1 - Major depressive disorder, single episode, moderate Category: Medical Plan: Referred to counseling. (2) Alcoholism: Code(s): F10.20 - Alcohol dependence, uncomplicated Category: Medical Plan: Was advised to cut down on drinking alcohol. 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 (4) Hypertriglyceridemia: Code(s): E78.1 - Pure hyperglyceridemia Category: Medical Plan: Continue fenofibrate. Repeat lipid panel. Orders: Orders Comprehensive [place]. Panel Fast Today F10.20 - Alcohol dependence, uncomplicated Influenza [id number] Immunization Today Z23 - Encounter for immunization Lipid Panel Today E78.5 - Hyperlipidemia, unspecified Referrals Psychology Referral F32.1 - Major depressive disorder, single episode, moderate
== END 2024-05-26 10:34 | disposition home or self-care (01) ==
PROVIDERS: PCP Internal Medicine; Visit Provider Internal Medicine
DX: F32.1 Major depressive disorder, single episode, moderate (principal); F10.982 Alcohol use, unspecified with alcohol-induced sleep disorder; E78.1 Pure hyperglyceridemia

== ENCOUNTER → 2024-05-26 10:01 | Outpatient (BNVA) | payer BC, SELFPAY | PROVIDERS: PCP Internal Medicine; Visit Provider Internal Medicine | DX: F32.1 Major depressive disorder, single episode, moderate (principal); F10.282 Alcohol dependence with alcohol-induced sleep disorder; E78.1 Pure hyperglyceridemia; Z23 Encounter for immunization | CPT/HCPCS: 90471; 90656 ==

== ENCOUNTER 2024-06-06 10:05 | Outpatient (REF) | payer BC, SELFPAY ==
[2024-06-06 12:24] LABS: Alanine Aminotransferase 46 U/L (0-40); Albumin Level 4.4 g/dL (3.5-5.0); Alkaline Phosphatase 122 U/L (39-117); Anion Gap 10 (12-20); Aspartate Amino Transferase 37 U/L (5-37); Bilirubin Total 1.1 mg/dL (0.0-1.0); Blood Urea Nitrogen 10 mg/dL (9-16); Calcium 9.5 mg/dL (8.4-10.2); Carbon Dioxide 23 mmol/L (22-29); Chloride 110 mmol/L (96-108); Cholesterol 144 mg/dL (<200); Estimated Glomerular Filt Rate > 60; Glucose Fasting 102 mg/dL (60-99); HDL Cholesterol 40 mg/dL (>40); LDL Cholesterol Calculated 53 mg/dL (<100); Potassium 3.8 mmol/L (3.3-5.1); Sodium 139 mmol/L (135-145); Total Protein 6.8 g/dL (6.5-8.0); Triglycerides 255 mg/dL (<150)
== END 2024-06-06 10:06 | disposition home or self-care (01) ==
LOC: HO.LAB 10:05
PROVIDERS: PCP Internal Medicine; Visit Provider Internal Medicine
DX: F10.20 Alcohol dependence, uncomplicated (principal); E78.5 Hyperlipidemia, unspecified
CPT/HCPCS: 36415; 80053; 80061

== ENCOUNTER 2024-06-09 07:16 | Day surgery (SDC) | payer BC, SELFPAY ==
[2024-06-07 15:35] VITALS: BMI 27.8
--- NOTE | 2024-06-08 08:33 | P.CONAN_ITS ---
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 Brother No problems noted. Surgical History Surgical History Hx of colonoscopy History of esophagogastroduodenoscopy (EGD) H/O umbilical hernia repair Lipoma Social History Social History Housing: House Are you a primary primary care coordinator to a significant other at home: No Do you presently have visiting nurse or other home services: No Alcohol intake: current Alcohol intake frequency: a few times a week Alcohol type: beer Patient Tobacco Use Status: Never used Tobacco e-Cigarette/Vaping Use: Never Used Second Hand Smoke Exposure: No Substance Use Frequency: Daily Have you been hit, kicked, punched, or otherwise hurt by someone within the past year? If so, by whom?: No Are you DNR?: No Advance Directives: No Advance Directives Information Provided: Yes Recently lost weight without trying: No Nutrition Risks: No Nutritional Risk service: No Current occupational status: employed Current occupational exposures/hazards: No Cognitive needs: No Hearing needs: No Vision needs: No Meds Allergies Allergy/AdvReac Type Severity Reaction Status Date / Time No Known Allergies Allergy Verified 06/09/24 08:15 [No Known Allergies*] Home Medications ?Medication ?Instructions ?Recorded ?Confirmed ?Last Taken ?Type sildenafil 25 mg tablet mg PO 01/19/24 05/26/24 Unknown History Exam Height,Weight and Vital Signs: Height 5 ft 6 in Weight 78.018 kg Pertinent Lab Results Pertinent Lab Results: Laboratory Tests 11/23/23 06/06/24 07:55 10:41 WBC 6.5 Hgb 13.9 L Hct 41.5 L Plt Count 247 Sodium 139 Potassium 3.8 Chloride 110 H Carbon Dioxide 23 BUN 10 Creatinine 0.99 Assessment and Plan Assessment Anesthesia Assessment: Chart Reviewed Documented by User: Lila Lainez MD 06/09/24 08:22 PMFSH Past Medical History Medical History Physical exam Colon cancer screening Alcoholism 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 Brother No problems noted. Family history of problems with anesthesia: No Surgical History Surgical History Hx of colonoscopy History of esophagogastroduodenoscopy (EGD) H/O umbilical hernia repair Lipoma History of Problems with Anesthesia: No Social History Social History Housing: House Are you a primary primary care coordinator to a significant other at home: No Do you presently have visiting nurse or other home services: No Alcohol intake: current Alcohol intake frequency: a few times a week Alcohol type: beer Patient Tobacco Use Status: Never used Tobacco e-Cigarette/Vaping Use: Never Used Second Hand Smoke Exposure: No Substance Use Frequency: Daily Have you been hit, kicked, punched, or otherwise hurt by someone within the past year? If so, by whom?: No Are you DNR?: No Advance Directives: No Advance Directives Information Provided: Yes Recently lost weight without trying: No Nutrition Risks: No Nutritional Risk service: No Current occupational status: employed Current occupational exposures/hazards: No Cognitive needs: No Hearing needs: No Vision needs: No Meds Allergies Allergy/AdvReac Type Severity Reaction Status Date / Time No Known Allergies Allergy Verified 06/09/24 08:15 [No Known Allergies*] Home Medications ?Medication ?Instructions ?Recorded ?Confirmed ?Last Taken ?Type sildenafil 25 mg tablet mg PO 01/19/24 05/26/24 Unknown History Exam Airway Mallampati Class: II TM Dist: >3cm Neck ROM: Full Heart: rrr Lungs: cta Assessment and Plan Assessment Anesthesia Assessment: Anesthesia Plan Discussed Final Anesthetic Review Family History of Problems with Anesthesia: No History of Problems with Anesthesia: No NPO: Yes ASA Class: III Final Preanesthetic Review: No Changes in Pt Med Stat, Consent Obtained/Reviewed and Anes Risks/Benef Reviewed Patient Risk: Intermediate Procedure Risk: Low Anesthetic Plan Anesthetic Plan: MAC: Disposition: Standard PACU
[2024-06-09 07:56] VITALS: BMI 27.1
[2024-06-09] MEDS: Lactated Ringers 1,000 ML 100 ML IVCONT (08:06)
[2024-06-09 08:12] VITALS: BP 147/100; PULSE 89; RESP 18; TEMP 36.6; O2SAT 99
--- NOTE | 2024-06-09 09:01 | MHC.SHP ---
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 RODRIGUEZ (generalized anxiety disorder) Severe major depression with psychotic features Vasectomy evaluation Trigger finger of right hand Angina at rest History of alcohol abuse Essential hypertension) History of Previous Operations: Relevant previous surgery/procedure and date(s) (Hx of colonoscopy History of esophagogastroduodenoscopy (EGD) H/O umbilical hernia repair Lipoma) Allergies: Allergies Allergy/AdvReac Type Severity Reaction Status Date / Time No Known Allergies Allergy Verified 06/09/24 08:15 [No Known Allergies*] Review of Systems Sugical H&P ROS: Negative: Constitution, Cardiovascular, Respiratory, Neurological, Psychiatric, Hem-Onc, Allergic/Immunologic, Gastrointestinal, Genitourinary, Musculoskeletal, Integumentary, Endocrine and Eyes/Ears/Nose/Throat Exam Surgical H&P Exam: Normal: HEENT, Normal: Heart, Normal: Lungs, Normal: Extremities, Normal: Abdomen, Normal: Skin and Normal: Neurological Plan Diagnosis/Plan: Unchanged I have reviewed the history and physical and performed a pertinent physical examination on my patient. No changes have occurred unless specified. Time Spent With Patient Time: Total time managing care of this patient today ____ minutes.
--- NOTE | 2024-06-09 09:35 | P.OPN-COLO_ITS ---
Colonoscopy Operative Note Operative Note Date of Service: 06/09/24 Narrative: Operative Information Procedure Description: Colonoscopy Indication: Screening Anesthesia: MAC COLONOSCOPY Instrument: Olympus variable stiffness pediatric scope 190L Colonoscopy Monitoring: Vital signs and clinical assessment, continuous EKG monitoring, Pulse oximetry, Carbon Dioxide monitoring and blood pressure monitoring were done throughout the procedure. Colon withdrawal time was 14 minutes. Procedure: The patient was placed in the left lateral decubitis position and pre-procedure medications were administered. After a digital rectal examination of the ano-rectum, the video colonoscope was inserted into the rectum and advanced through the colon to the cecum/TI. The colonoscope was slowly withdrawn in a retrograde panoramic fashion and the colon mucosa was carefully examined including a retroflexed view of the rectum. Findings and interventions are described below. Procedure Difficulty: easy Findings: Terminal Ileum-normal Cecum:normal Ascending Colon: normal Transverse Colon - x 2 sessile polyps 10-12 mm removed with cold snare, x 1 clip also applied for hemostasis Descending Colon:normal Sigmoid Colon: normal Rectum: Retroflexion with small internal hemorrhoids seen, grade I , x 1 sessile polyp 4-5 mm removed with cold forceps, x2 sessile polyps 5-7 mm removed with cold snare Anorectum - normal Intervention: cold snare, cold forceps Colon preparation: [place] Bowel Preparation Scale Right colon; 2 Transverse colon: 2 Left colon; 2 (0 = Unprepared colon segment with mucosa not seen due to solid stool that cannot be cleared. 1 = Portion of mucosa of the colon segment seen, but other areas of the colon segment not well seen due to staining, residual stool and/or opaque liquid. 2 = Minor amount of residual staining, small fragments of stool and/or opaque liquid, but mucosa of colon segment seen well. 3 = Entire mucosa of colon segment seen well with no residual staining, small fragments of stool or opaque liquid) Impression and Post Procedure Diagnosis: colon polyps internal hemorrhoids Plan: High fiber diet leaflet Avoid straining at stool, epsom salts and sitz bath, anusol supps or cream Repeat Colonoscopy in 3 years or earlier if clinically indicated Above findings were reviewed with the patient and relevant handouts were provided if indicated.
[2024-06-09 09:36] VITALS: BP 113/78; PULSE 87; RESP 16; TEMP 36.5; O2SAT 96
[2024-06-09 09:51] VITALS: BP 132/92; PULSE 68; RESP 16; TEMP 36.8; O2SAT 98
== END 2024-06-09 10:16 | disposition home or self-care (01) ==
PROVIDERS: PCP Internal Medicine; Visit Provider Internal Medicine Gastroenterology
PROC: 0DJD8ZZ Inspection of Lower Intestinal Tract, Via Natural or Artificial Opening Endoscopic (ICD-10-PCS; CPT 45378; principal; 2024-06-09 09:00)
DX: Z12.11 Encounter for screening for malignant neoplasm of colon (principal); Z86.0101 Personal history of adenomatous and serrated colon polyps; D12.3 Benign neoplasm of transverse colon; K63.5 Polyp of colon; K64.0 First degree hemorrhoids; K76.0 Fatty (change of) liver, not elsewhere classified; I10 Essential (primary) hypertension; F10.282 Alcohol dependence with alcohol-induced sleep disorder; G47.00 Insomnia, unspecified; F33.3 Major depressive disorder, recurrent, severe with psychotic symptoms; F41.1 Generalized anxiety disorder; I20.89 Other forms of angina pectoris; Z79.899 Other long term (current) drug therapy
CPT/HCPCS: 45385; 45380; 88305; J2003; J2250; J2704

== ENCOUNTER → 2024-06-09 07:16 | Outpatient (BNV) | payer BC, SELFPAY | PROVIDERS: PCP Internal Medicine; Visit Provider Internal Medicine Gastroenterology | DX: Z12.11 Encounter for screening for malignant neoplasm of colon (principal); D12.3 Benign neoplasm of transverse colon; K63.5 Polyp of colon; K64.0 First degree hemorrhoids | CPT/HCPCS: 45380; 45385 ==

== ENCOUNTER 2024-11-22 10:01 | Outpatient (REF) | payer BC, SELFPAY ==
[2024-11-22 11:23] LABS: Cholesterol 164 mg/dL (<200); HDL Cholesterol 38 mg/dL (>40); LDL Cholesterol Calculated 84 mg/dL (<100); Triglycerides 211 mg/dL (<150)
--- OUTSIDE RECORDS SUMMARY | 2024-11-22 11:41 | XMS_ITS | Encounter Summary ---
Author Organization [employer] [facility] Address [address] [place] [address] [address] [place] [address] Care Team Providers Care Scrap Drop Operator Name Role Phone Unavailable Primary Care Provider Unavailabl e Encounter Details Date Type Department Care Team (Late st Contact Info) Description 04/30/2023 Abstract [facility] ADULT DENTAL [address] [place] [address] Jose Bassett, DMD [address] [place] [address] Social History Tobacco Use Types Packs/Day Years Used Date Smoking Tobacco: Never Assessed Sex and Gender Information Value Date Recorded Sex Assigned at Male 06/16/2022 10:19 AM EDT Legal Sex Male 10:19 AM EDT Gender Identity Male 06/16/2022 10:19 AM EDT Sexual Orientation Choose not to disclose 2021 10:19 AM EDT documented as of this encounter Plan of Treatment Not on file documented as of this encounter Visit Diagnoses Not on filedocumented in this encounter
--- OUTSIDE RECORDS SUMMARY | 2024-11-22 11:41 | XMS_ITS | Encounter Summary ---
Author Organization [email or web address] [facility] Address [address] [place] [address] [address] [place] [address] Care Team Providers Care Size Mixer Name Role Phone Unavailable Primary Care Provider Unavailabl e Encounter Details Date Type Department Care Team (Latest Contact Info) Description 08/23/2018 Abstract [facility] CONVERSIONS Dental, Provider, DDS Social History Tobacco Use Types Packs/Day Years [...]
--- OUTSIDE RECORDS SUMMARY | 2024-11-22 11:41 | XMS_ITS | Encounter Summary ---
Author Organization [employer] [facility] Address [address] [place] [address] [address] [place] [address] Care Team Providers Care Hand Tufter Name Role Phone Unavailable Primary Care Provider Unavailabl e Encounter Details Date Type Department Care Team (Latest Contact Info) Description 11/20/2021 Abstract [facility] CONVERSIONS Dental, Provider, DDS Social History [...]
--- OUTSIDE RECORDS SUMMARY | 2024-11-22 11:41 | XMS_ITS | Encounter Summary ---
Author Organization [employer] [facility] Address [address] [place] [address] [address] [place] [address] Care Team Providers Care Front Office Spec Name Role Phone Unavailable Primary Care Provider Unavailabl e Encounter Details Date Type Department Care Team (Late st Contact Info) Description 04/21/2023 Abstract [facility] ADULT DENTAL [address] [place] [address] Jose Bassett, DMD [address] [place] [address] Social History Tobacco Use Types Packs/Day Years [...]
--- OUTSIDE RECORDS SUMMARY | 2024-11-22 11:41 | XMS_ITS | Encounter Summary ---
Author Organization [facility] Address [address] [place] [address] [address] [place] [address] Care Team Providers Care Addiction Therapist Name Role Phone Unavailable Primary Care Provider Unavailabl e Encounter Details Date Type Department Care Team (Latest Contact Info) Description 01/02/2021 Abstract [facility] CONVERSIONS Dental, Provider, DDS Social History [...]
--- OUTSIDE RECORDS SUMMARY | 2024-11-22 11:41 | XMS_ITS | Encounter Summary ---
Author Organization [facility] Address [address] [place] [address] [address] [place] [address] Care Team Providers Care Senior Integration Developer Name Role Phone Unavailable Primary Care Provider Unavailabl e Encounter Details Date Type Department Care Team (Latest Contact Info) Description 08/25/2019 Abstract [facility] CONVERSIONS Dental, Provider, DDS Social History [...]
--- OUTSIDE RECORDS SUMMARY | 2024-11-22 11:41 | XMS_ITS | Clinical Summary ---
Author Organization [facility] Address [address] [place] [address] [address] [place] [address] Care Team Providers Care Equipment Worker Name Role Phone Unavailable Primary Care Provider Unavailabl e Allergies No known active allergies Medications traZODone (Desyrel) 100 MG tablet Take 100 mg by mouth if needed at bedtime. 03/01/2023 Active Active Problems Problem Noted Date Diagnosed Date Dental calculus 05/15/2023 Localized gingival recession, minimal 05/15/2023 Encounters Date Type Department Care Team Description 11/16/2024 8:00 AM EDT Office Visit [facility] ADULT DENTAL [address] [place] [address] Anjali Carmona Dental calculus (Primary Dx); Localized gingival recession, minimal; Periodontosis; Encounter for dental examination; Acute gingival inflammation from Last 3 Months Social History Tobacco Use Types Packs/Day Years Used Date Smoking Tobacco: Never Smokeless Tobacco: Never Tobacco Cessation:Counseling Given: Not Answered Alcohol Use Standard Drinks/Week Comments Never 0 (1 standard drink = 0.6 oz pur e alcohol) Sex and Gender Information Value Date Recorded Sex Assigned at Male 06/16/2022 10:19 AM EDT Legal Sex Male 10:19 AM EDT Gender Identity Male 06/16/2022 10:19 AM EDT Sexual Orientation Choose not to disclose 2021 10:19 AM EDT Last Filed Vital Signs Vital Sign Reading Time Taken Comments Blood Pressure 116/78 06/10/2023 8:37 AM EDT Pulse 76 05/15/2023 10:22 AM EDT Temperature - - Respiratory Rate - - Oxygen Saturation - - Inhaled Oxygen Concentration - - Weight - - Height - - Body Mass Index - - Plan of Treatment Health Maintenance Due Date Last Done Comments CT Colonography 1972 Colonoscopy 1972 Colorectal Cancer Screening 1972 Depression Screening 1972 FIT DNA/Cologuard 1972 FIT 1972 FOBT 1972 HIV Screening 1972 Lipid Panel 1972 SDOH Screening 1972 Sigmoidoscopy 1972 Alcohol/Substance Use Screening 1984 Family Planning (PISQ) 01/19/1987 Hepatitis C Screening 01/19/1990 Hepatitis B Vaccines (1 of 3 - 19+ 3-dose series) 01/19/1991 03/02/2008, 10/13/2007, 09/13/2007 Pneumococcal Vaccine: 50+ Years (1 of 1 - PCV) 01/19/2022 COVID-19 Vaccine ( season) 2024 07/23/2021, 11/28/2020, 10/31/2020 Influenza Vaccine (#1) 2024 , 06/30/2022, 04/24/2021, Additional history exists Dental Oral Exam 05/19/2025 11/16/2024, , 05/28/2022, Additional history exists Dental Prophylaxis 05/19/2025 11/16/2024, 0 05/15/2023, 05/28/2022, Additional history exists Tobacco Screening 11/16/2025 11/16/2024 Dental X-Ray: Bitewings 11/17/2025 11/17/19 25, 04/02/2023, 11/20/2021, Additional history exists Dental X-Ray: Full Mouth 04/03/2026 023, 11/20/2021, 07/24/2016, Additional history exists DTaP/Tdap/Td Vaccines (2 - Td or Tdap) 08/15/2029 08/15/2019, 10/23/2008 RSV Patients and Patients Aged 60 years or older (1 - 1-dose 75+ series) 01/19/2047 Hepatitis A Vaccines Aged Out 09/13/2007 No long er eligible based on patient's age to complete this topic Zoster Vaccines Completed 04/16/2023, 01/13/2023 HIB Vaccines Aged Out No longer eligi ble based on patient's age to complete this topic HPV Vaccines Aged Out No longer eligi ble based on patient's age to complete this topic IPV Vaccines Aged Out No longer eligi ble based on patient's age to complete this topic Meningococcal Vaccine Aged Out No malgorzata jerry eligible based on patient's age to complete this topic RSV under 20 months Aged Out No longe r eligible based on patient's age to complete this topic Rotavirus Vaccines Aged Out No longer eligible based on patient's age to complete this topic Procedures Procedure Name Priority Date/Time Associated Diagnosis Comments COMPREHENSIVE PERIODONTAL EVALUATION - NEW OR ESTABLISHED PATIENT Routine 11/16/2024 8:00 AM EDT Dental calculus Localized gingival recession, minimal Periodontosis Encounter for dental examination Acute gingival inflammation PERIODIC ORAL EVALUATION - ESTABLISHED PATIENT Routine 11/16/2024 8:00 AM EDT Dental calculus Localized gingival recession, minimal Periodontosis Encounter for dental examination Acute gingival inflammation 19 INTRAORAL - PERIAPICAL EACH ADDITIONAL RADIOGRAPHIC IMAGE Routine 11/16/2024 8:00 AM EDT 24,25 INTRAORAL - PERIAPICAL EACH ADDITIONAL RADIOGRAPHIC IMAGE Routine 11/16/2024 8:00 AM EDT Dental calculus Localized gingival recession, minimal 8,9 INTRAORAL - PERIAPICAL FIRST RADIOGRAPHIC IMAGE Routine 11/16/2024 8:00 AM EDT Dental calculus Localized gingival recession, minimal ORAL HYGIENE INSTRUCTIONS Routine 11/16/2024 8:00 AM EDT Dental calculus Localized gingival recession, minimal BITEWINGS - 4 RADIOGRAPHIC IMAGES Routine 11/16/2024 8:00 AM EDT Dental calculus Localized gingival recession, minimal Full PROPHYLAXIS - ADULT Routine 025 8:00 AM EDT Dental calculus INTRAORAL - COMPLETE SERIES OF RADIOGRAPHIC IMAGES Routine 04/02/2023 8:30 AM EDT from Last 3 Months or Most Recently Relevant to Health Maintenance Insurance DENTAL - [facility] - [employer] [place]
--- OUTSIDE RECORDS SUMMARY | 2024-11-22 11:41 | XMS_ITS | Encounter Summary ---
Author Organization [employer] [facility] Address [address] [place] [address] [address] [place] [address] Care Team Providers Care Furniture Servicer Name Role Phone Unavailable Primary Care Provider Unavailabl e Reason for Visit * Reason Onset Date Comments Appointment 10/30/2022 prior authoritzation 10/30/2022 Encounter Details Date Type Department Care Team ([facility] st Contact Info) Description 10/30/2022 Telephone [facility] ADULT DENTAL [address] [place], [place] [id number] Jose Bassett, DMD [address] [place] [address] Appointment; prior authoritzation Social History Tobacco Use Types Packs/Day Years Used Date Smoking Tobacco: Never Assessed Sex and Gender Information Value Date Recorded Sex Assigned at Male 06/16/2022 10:19 AM EDT Legal Sex Male 10:19 AM EDT Gender Identity Male 06/16/2022 10:19 AM EDT Sexual Orientation Choose not to disclose 2021 10:19 AM EDT documented as of this encounter Miscellaneous Notes * Telephone Encounter - Kristen Corbin - 10/30/2022 1:12 PM EDT Patient called in looking to schedule for crown #19. It looks on [employer] that it was requested but Ja not see approval for crown tx. When I explained this to the patient that I would contact office to confim if PA was received, he told me that this had been resolved and he was told that he is all set. Either way I did explain that because I could not see it on my end, I would relay information to office and they would contact him with confirmation that he is good to go and that appt can be scheduled. Patient understood DR documented in this encounter Plan of Treatment Not on file documented as of this encounter Visit Diagnoses Not on filedocumented in this encounter
--- OUTSIDE RECORDS SUMMARY | 2024-11-22 11:41 | XMS_ITS | Clinical Summary ---
Author Organization [facility] Address [address] [place] [address] Care Team Providers Care Setup Technician Name Role Phone Unavailable Primary Care Provider Unavailabl e Source Comments PLEASE NOTE, if this patient is a minor, it may be UNLAWFUL to discuss sensitive information that is contained in these records (such as FAMILY PLANNING, MENTAL HEALTH or SUBSTANCE ABUSE) with the minor patient's parent or other person without the patient's specific authorization.[facility] Immunizations Immunization Administration Dates Next Due Moderna COVID-19 Vaccine, re d cap blue label, 12+ Primary Series 07/23/2021,11/28/2020,10/31/2020 Social History Tobacco Use Types Packs/Day Years Used Date Smoking Tobacco: Never Assessed Social Connections Answer Date Recorded Social Connections and Isolation 0 10/31/2020 Financial Resource Strain Answer Date R ecorded Financial Resource Strain 0 2020 Stress Answer Date Recorded Stress 0 10/31/2020 Physical Activity Answer Date Recorded Physical Activity 0 10/31/2020 Food Insecurity Answer Date Recorded Food 0 10/31/2020 Transportation Needs Answer Date Record ed Transportation 0 10/31/2020 Housing Stability Answer Date Recorded Housing 0 10/31/2020 Safety and Environment Answer Date Kiran rded Safety 0 10/31/2020 Utilities Answer Date Recorded Utilities 0 10/31/2020 Employment Answer Date Recorded Employment 0 10/31/2020 Sex and Gender Information Value Date Recorded Sex Assigned at Not on file Legal Sex Male 7:31 AM PDT Gender Identity Not on file Sexual Orientation Not on file Plan of Treatment Health Maintenance Due Date Last Done Comments Anxiety Screening 1972 Diabetes Screening 1972 Hepatitis C Screening 1972 Lipid Screening 1972 Tobacco Screening 1972 HIV Screening 01/19/1987 Hypertension Screening (#1) 01/19/1990 Imm-Hepatitis B (1 of 3 - 19 + 3-dose series) 01/19/1991 03/02/2008, 10/13/2007, 09/13/2007 CT Colonography 01/19/2017 Colonoscopy 01/19/2017 Colorectal Cancer Screening 01/19/2017 FIT/gFOBT 01/19/2017 Fecal DNA 01/19/2017 Flexible Sigmoidoscopy 01/19/2017 Imm-Zoster, Recombinant (1 of 2) 01/19/2022 [id number] ( season) 2024 07/23/2021, 11/28/2020, 10/31/2020 Imm-Influenza (#1) 2024 04/24/2021, 1 , 06/03/2019, Additional history exists Alcohol and Drug Screen 08/17/2024 Depression Annual Screen 08/17/2024 Imm-DTaP/Tdap/Td (2 - Td or Tdap) 08/15/2029 019, 10/23/2008 Insurance [facility] Member Subscriber Plan / Payer (Ef fective 2020-Present) Name:Dickson Tatum Relation to Subscriber:Self Name:Dickson Tatum Payer ID:[id number] Group ID:Not on file Type:Indemnity Address: [facility] [id number] [address] [place] [id number]
== END 2024-11-22 10:02 | disposition home or self-care (01) ==
LOC: HO.LAB 10:01
PROVIDERS: PCP Internal Medicine; Visit Provider Internal Medicine
DX: E78.5 Hyperlipidemia, unspecified (principal)
CPT/HCPCS: 36415; 80061

== ENCOUNTER 2024-11-24 08:32 | Outpatient (AMB) | payer BC, SELFPAY ==
[2024-11-24 08:35] VITALS: BP 118/82; BMI 26.5
--- NOTE | 2024-11-24 08:35 | MHC.PC.OV ---
Vital Signs 11/24/24 08:35 Height 5 ft 6 in Weight 164 lb BMI 26.5 BP 118/82 Blood Pressure Location Lt brachial Position Sitting Intake Visit Reasons: PE - see comments Intake Note: Patient here for a physical exam Fingerprint Technician Required: No Accompanied by: Self / Same As Patient Allergies No Known Allergies [No Known Allergies*] Allergy (Verified 11/24/24 08:54) Medication List - Last Reconciled 11/24/24 by Courtney Osborne MD trazodone 100 mg PO BEDTIME PRN 90 days Tobacco use date assessed: 11/24/24 Dental Screening Dental Screen Date: 11/24/24 Did you have a dental visit in the last 12 months?: Yes Did you have a dental problem in the last 6 months where you did not have access to dental care?: No Was dental information given to patient?: Patient has dentist HPI HPI Comments History of Present Illness Details The patient is a 54-year-old male presenting for an annual physical examination. His recent lab work indicated normal cholesterol levels, but elevated triglyceride levels were observed. The patient partially attributes this to a history of alcohol consumption and dietary choices such as eating fried foods. He has decreased his alcohol intake but currently drinks wine twice a week. The patient uses Trazodone nightly for sleep disturbances and mood management; however, he reports persistent depressive and anxious symptoms. He has mentioned feelings of negativity and periods of depression without suicidality, and there is a consideration for psychiatric care, although he remains hesitant. His past surgical interventions include a colonoscopy, planned for repetition, and procedures for umbilical hernia repair and lipoma removal. His family history includes Alzheimer's disease on his father's side and heart disease on his mother's side. He denies smoking, chest pain, or dyspnea but occasionally experiences shortness of breath, possibly related to anxiety or a lack of physical activity. - Cholesterol levels are within the normal range. - Elevated triglycerides noted; patient advised on lifestyle changes such as diet modification. - Colonoscopy performed last year; repeat colonoscopy scheduled as per guidelines. - Exploring psychiatric management for depression and anxiety. - Discussion about decreasing alcohol intake to lower triglyceride levels and alleviate depressive symptoms. 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 Brother No problems noted. Social History (Updated 11/24/24 @ 08:59 by Courtney Osborne MD) Housing: House Are you a primary child care supervisor to a significant other at home: No Do you presently have visiting nurse or other home services: No Alcohol intake: current Alcohol intake frequency: a few times a week Alcohol type: beer and wine Patient Tobacco Use Status: Never used Tobacco e-Cigarette/Vaping Use: Never Used Second Hand Smoke Exposure: No service: No Current occupational status: employed Current occupational exposures/hazards: No Cognitive needs: No Hearing needs: No Vision needs: No Questionnaire PHQ-9 Over the last 2 weeks, how often have you been bothered by any of the following problems? 1. Little interest or pleasure in doing things: nearly every day 2. Feeling down, depressed, or hopeless: nearly every day 3. Trouble falling or staying asleep, or sleeping too much: several days 4. Feeling tired or having little energy: nearly every day 5. Poor appetite or overeating: nearly every day 6. Feeling bad about yourself - or that you are a failure or have let yourself or your family down: nearly every day 7. Trouble concentrating on things, such as reading the newspaper or watching television: nearly every day 8. Moving or speaking so slowly that other people could have noticed. Or the opposite - being so fidgety or restless that you have been moving around a lot more than usual: more than half the days 9. Thoughts that you would be better off or of hurting yourself in some way: more than half the days Total score: 23 Depression Screening Interpretation: Positive (no suicidal thoughts) Depression Screening Follow-up: Existing condition, In treatment and Follow-up Visit Requested Depression Screening Done: Yes 11216 - PHQ-9 Billing: Yes Source: Developed by Drs. Willi Gibbons, Davina Pope, Antoine Gross and colleagues, with an educational tray from [employer]. Thrive Questionnaire Date Thrive assessed: 11/24/24 I am a: Patient What is your living situation today?: I do not have a steady places to live I choose not to answer this question Within the past 12 months, did the food you bought not last and you didn't have the money to get more?: Often true Within the past 12 months, did you worry whether your food would run out before you got money to buy more?: Sometimes True Do you have trouble paying for medicines?: No Do you have trouble getting transportation to medical appointments?: No Do you have trouble paying your heating and electricity bill?: No Do you have trouble taking care of your child, family member or friend?: No Do you have trouble with day-to-day activities such as bathing, preparing meals, shopping, managing finances, etc.?: Yes Are you currently unemployed and looking for a job?: Yes Are you interested in more education?: No Please select the resources that you would like help with: Job search/training Currently or been in a relationship where the following occur: I choose not to answer THRIVE Score: 3 AUDIT C Alcohol Use Questionnaire (AUDIT-C) 1. How often do you have a drink containing alcohol?: 2-4 times a month 2. How many drinks containing alcohol do you have on a typical day when you are drinking?: 7 to 9 3. How often do you have six or more drinks on one occasion?: Monthly Total Score: 7 Score Reviewed/Action Taken: Yes (Needs to cut down on drinking alcohol) RODRIGUEZ-7 AMB Questionnaire RODRIGUEZ-7 Date RODRIGUEZ - 7 assessed: 11/24/24 Feeling nervous, anxious, or on edge: 3 = Nearly every day Not being able to stop or control worryin = Nearly every day Worrying too much about different things: 3 = Nearly every day Trouble relaxin = Nearly every day Being so restless that it is hard to sit still: 3 = Nearly every day Becoming easily annoyed or irritable: 3 = Nearly every day Feeling afraid as if something awful might happen: 3 = Nearly every day Total RODRIGUEZ-7 score (0-4 normal; 5-9 mild; 10-14 moderate; 15-21 severe): 21 Source: Developed by Drs. Willi Gibbons, Davina Pope, Antoine Gross and colleagues, with an educational tray from [employer]. RODRIGUEZ-7 Assessment Billing RODRIGUEZ-7 Assessment Tool: RODRIGUEZ-7 Assessment 79608 Review of Systems Const All systems reviewed & are unremarkable except as noted in HPI and below Eyes Reports no additional complaints, Denies change in vision and Denies other visual disturbances Card Denies chest pain at rest, Denies chest pain with activity, Denies edema, Denies irregular heart rhythm, Denies claudication, Denies dyspnea, Denies dyspnea on exertion, Denies orthopnea, Denies paroxysmal nocturnal dyspnea and Denies slow heart rate Resp Denies cough, Denies dyspnea and Denies dyspnea on exertion GI Denies abdominal pain, Denies change in bowel habits, Denies excessive flatus, Denies nausea and Denies vomiting Denies urinary hesitancy, Denies urinary incontinence and Denies urinary urgency Musc Denies atrophy, Denies deformity and Denies limited range of motion Skin/Breast Denies bleeding lesions, Denies changing lesions and Denies rash Physical exam (Primary Care) Vital Signs: Last Vital Signs BP 118/82 11/24/24 08:35 BMI result Body Mass Index 26.5 Tobacco/Smoking Status: Tobacco use Status Tobacco use date assessed 11/24/24 11/24/24 08:40 Patient Tobacco Use Status Never used Tobacco 11/24/24 08:40 e-Cigarette/Vaping Use Never Used 11/24/24 08:40 PHQ-9: PHQ-9 Score PHQ-9: Total score 23 11/24/24 08:40 Depression Screening Interpretation: Positive (no suicidal thoughts) Depression Screening Follow-up: Existing condition, In treatment and Follow-up Visit Requested Thrive Assessment: Date of Thrive Assessment Date Thrive assessed 11/24/24 11/24/24 08:40 Currently or been in a relationship where the following occur: I choose not to answer HENMT Head: Yes normal to inspection, Yes normocephalic and Yes atraumatic Ears: external ears normal Eyes General: appearance normal, both eyes and all related structures Eyelids: Yes eyelids normal Conjunctivae: conjunctivae normal Neck Neck: Yes normal visual inspection and Yes supple Resp Effort & Inspection: normal respiratory effort Auscultation: clear to auscultation bilaterally Cardio Jugular venous distension: no JVD Rate: regular rate Rhythm: regular rhythm Heart sounds: S1 normal heart sound present and S2 normal heart sound present GI Inspection: Yes normal to inspection Palpation (GI): Soft to palpation and nontender Auscultation: normal bowel sounds Skin General skin exam: no rashes or lesions noted Neuro General: no focal motor deficits Extrem General: Yes full ROM Psych Appearance: grossly normal Coding Level of Care Code Est Pt Level 3 (42575) Est Pt Prev Care 40-64y(33974) Diagnoses Physical exam Z00.00 Severe major depression without psychotic features F32.2 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 F10.982 Alcoholism F10.20 Additional Codes PHQ-9 - 16114 - PHQ-9 Billing: Yes ([id number]) RODRIGUEZ-7 Assessment Billing - RODRIGUEZ-7 Assessment Tool: RODRIGUEZ-7 Assessment 90440 ([id number]) Time Spent (min) 30 Assessment & Plan Assessment & Plan (1) Physical exam: Code(s): Z00.00 - Encounter for general adult medical examination without abnormal findings Category: Medical (2) Severe major depression without psychotic features: Code(s): F32.2 - Major depressive disorder, single episode, severe without psychotic features Category: Medical (3) 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 This approach encompasses management suggestions for mental health in conjunction with dietary modifications. Additionally, a repeat colonoscopy is scheduled to comply with recommended health surveillance yearly plans. Patient was informed and verbally consented to the use of an ambient scribe for clinic note documentation during this visit. During the visit, I discussed the likely diagnosis of elevated triglycerides linked to dietary and alcohol intake and the benefits of lifestyle change in improving these parameters. I suggested initiating treatment for depression and anxiety with a new medication, barring any contraindications, and referred the patient to psychiatry for further management. Prior to this, a detailed explanation of the potential benefits and risks of psychiatric treatment was provided. A follow-up in six months will help to assess the response to medication. Recommendations for enhanced monitoring of alcohol consumption and adherence to healthier dietary habits were given. Orders: Referrals Open Access Screening Colonoscopy Referral Z12.12 - Encounter for screening for malignant neoplasm of rectum Psychiatry Outpatient Consultation Service F32.2 - Major depressive disorder, single episode, severe without psychotic features Medications: New sertraline 25 mg PO DAILY 90 days 90 tabs 0RF F32.2 - Major depressive disorder, single episode, severe without psychotic features Patient Instructions: - Begin prescribed medication for both depression and anxiety. - Limit alcohol intake to practice healthier lifestyle habits and reduce triglycerides. - Schedule and attend the repeat colonoscopy. - Make an appointment for psychiatric evaluation as needed. - Increase water intake to ensure adequate hydration. - Follow up in six months to assess the treatment plan and its effects.
--- OUTSIDE RECORDS SUMMARY | 2024-11-24 08:48 | XMS_ITS | Encounter Summary ---
Author Organization [facility] Address [address] [place] [address] [address] [place] [address] Care Team Providers Care Expansion Joint Builder Name Role Phone Unavailable Primary Care Provider Unavailabl e Reason for Visit * Reason Onset Date Comments Appointment 10/30/2022 prior authoritzation 10/30/2022 Encounter Details Date Type Department Care Team ([facility] st Contact Info) Description 10/30/2022 Telephone [facility] ADULT DENTAL [address] [place] [address] Jose Bassett, DMD [address] [place] [address] Appointment; prior authoritzation Social History Tobacco Use [...]
--- OUTSIDE RECORDS SUMMARY | 2024-11-24 08:48 | XMS_ITS | Encounter Summary ---
Author Organization [facility] [facility] Address [address] [place] [address] [address] [place] [address] Care Team Providers Care Reheater Helper Name Role Phone Unavailable Primary Care Provider Unavailabl e Encounter Details Date Type Department Care Team (Latest Contact Info) Description 08/23/2018 Abstract [facility] CONVERSIONS Dental, Provider, DDS Social History [...]
--- OUTSIDE RECORDS SUMMARY | 2024-11-24 08:48 | XMS_ITS | Encounter Summary ---
Author Organization [employer] [facility] Address [address] [place] [address] [address] [place] [address] Care Team Providers Care Licensed Final Expense Agents Name Role Phone Unavailable Primary Care Provider Unavailabl e Encounter Details Date Type Department Care Team (Late st Contact Info) Description 04/21/2023 Abstract [facility] ADULT [facility] [address] [place] [address] Jose Bassett, DMD [address] [place] [address] Social History Tobacco Use Types Packs/Day Years [...]
--- OUTSIDE RECORDS SUMMARY | 2024-11-24 08:48 | XMS_ITS | Encounter Summary ---
Author Organization [facility] Address [address] [place] [address] 7 [place] [address] Care Team Providers Care Rod Cup Filler Name Role Phone Unavailable Primary Care Provider Unavailabl e Encounter Details Date Type Department Care Team (Latest Contact Info) Description 11/20/2021 Abstract [facility] CONVERSIONS Dental, Provider, DDS Social History [...]
--- OUTSIDE RECORDS SUMMARY | 2024-11-24 08:48 | XMS_ITS | Encounter Summary ---
Author Organization [employer] [facility] Address [address] [place] [address] 7 [place] [address] Care Team Providers Care Urban Design Consultant Name Role Phone Unavailable Primary Care Provider Unavailabl e Encounter Details Date Type Department Care Team (Latest Contact Info) Description 01/02/2021 Abstract [facility] CONVERSIONS Dental, Provider, DDS Social [...]
--- OUTSIDE RECORDS SUMMARY | 2024-11-24 08:48 | XMS_ITS | Encounter Summary ---
Author Organization [employer] [facility] Address [address] [place] [address] [address] [place] [address] Care Team Providers Care Draftsperson Name Role Phone Unavailable Primary Care Provider Unavailabl e Encounter Details Date Type Department Care Team (Late st Contact Info) Description 04/30/2023 Abstract [facility] ADULT DENTAL [address] [place] [address] Jose Bassett, DMD [address] [place] [address] Social History Tobacco Use Types Packs/Day Years [...]
--- OUTSIDE RECORDS SUMMARY | 2024-11-24 08:48 | XMS_ITS | Encounter Summary ---
Author Organization [employer] [facility] Address [address] [place] [address] 7 [place] [address] Care Team Providers Care Director Marketing Communications Name Role Phone Unavailable Primary Care Provider Unavailabl e Encounter Details Date Type Department Care Team (Latest Contact Info) Description 08/25/2019 Abstract [facility] CONVERSIONS Dental, Provider, DDS Social History Tobacco [...]
--- OUTSIDE RECORDS SUMMARY | 2024-11-24 08:48 | XMS_ITS | Clinical Summary ---
Author Organization [employer] [facility] Address [address] [place] [address] 7 [place] [address] Care Team Providers Care Fermentation Manager Name Role Phone Unavailable Primary Care Provider Unavailabl e Allergies No known active allergies Medications traZODone (Desyrel) 100 MG tablet Take 100 mg by mouth if needed at bedtime. 03/01/2023 Active Active Problems Problem Noted Date Diagnosed Date Dental calculus 05/15/2023 Localized gingival recession, minimal 05/15/2023 Encounters Date Type Department Care Team Description 11/16/2024 8:00 AM EDT Office Visit [facility] ADULT DENTAL [address] [place] [address] Anjali Carmona Dental calculus (Primary Dx); Localized [...] - [facility] [employer] [place]
--- OUTSIDE RECORDS SUMMARY | 2024-11-24 08:48 | XMS_ITS | Clinical Summary ---
Author Organization [facility] Address [address] [place] [address] Care Team Providers Care Flight Engineer Manager Name Role Phone Unavailable Primary Care [...] 01/19/2017 Imm-Zoster, Recombinant (1 of 2) 01/19/2022 [id number] ( season) 2024 07/23/2021, 11/28/2020, 10/31/2020 Imm-Influenza (#1) 2024 04/24/2021, 1 , 06/03/2019, Additional history exists Alcohol and Drug Screen 08/17/2024 Depression Annual Screen 08/17/2024 Imm-DTaP/Tdap/Td (2 - Td or Tdap) 08/15/2029 019, 10/23/2008 Insurance [facility] Member Subscriber Plan / Payer (Ef fective 2020-Present) Name:Dickson Tatum Relation to Subscriber:Self Name:Dickson Tatum Payer ID:[id number] Group ID:Not on file Type:Indemnity Address: [facility] [id number] [id number]
== END 2024-11-24 09:08 | disposition home or self-care (01) ==
LOC: HO.HMCH 08:33
PROVIDERS: PCP Internal Medicine; Visit Provider Internal Medicine
DX: Z00.00 Encounter for general adult medical examination without abnormal findings (principal); F32.2 Major depressive disorder, single episode, severe without psychotic features; F10.982 Alcohol use, unspecified with alcohol-induced sleep disorder

== ENCOUNTER → 2024-11-24 08:32 | Outpatient (BNVA) | payer BC, SELFPAY | PROVIDERS: PCP Internal Medicine; Visit Provider Internal Medicine | DX: Z00.00 Encounter for general adult medical examination without abnormal findings (principal); F32.2 Major depressive disorder, single episode, severe without psychotic features; F10.282 Alcohol dependence with alcohol-induced sleep disorder | CPT/HCPCS: 96127 ==

== ENCOUNTER 2025-05-29 08:03 | Outpatient (REF) | payer BC, SELFPAY ==
--- OUTSIDE RECORDS SUMMARY | 2025-05-29 08:44 | XMS_ITS | Encounter Summary ---
Author Organization [employer] [facility] Address [address] [place] [address] 7 [place] [address] Care Team Providers Care Potato Chip Cooker Machine Name Role Phone Unavailable Primary Care Provider Unavailabl e Encounter Details Date Type Department Care Team (Late st Contact Info) Description 04/21/2023 Abstract [facility] ADULT DENTAL [address] [place] [address] Jose Bassett, DMD [address] [place] [address] Social History Tobacco Use Types Packs/Day Years [...]
--- OUTSIDE RECORDS SUMMARY | 2025-05-29 08:44 | XMS_ITS | Encounter Summary ---
Author Organization [employer] Address [address] [facility] 7t [place] [address] Care Team Providers Care Crystal Slicer Name Role Phone Unavailable Primary Care Provider Unavailabl e Encounter Details Date Type Department Care Team (Latest Contact Info) Description 01/02/2021 Abstract [facility] CONVERSIONS Dental, Provider, DDS Social History [...]
--- OUTSIDE RECORDS SUMMARY | 2025-05-29 08:44 | XMS_ITS | Encounter Summary ---
Author Organization [employer] [facility] Address [address] [facility] 7t [place] [address] Care Team Providers Care Sex Crimes Detective Name Role Phone Unavailable Primary Care Provider Unavailabl e Encounter Details Date Type Department Care Team (Late st Contact Info) Description 04/30/2023 Abstract [facility] ADULT DENTAL [address] [place] [address] Jose Bassett, DMD [address] [place] [address] Social History Tobacco Use Types Packs/Day Years [...]
--- OUTSIDE RECORDS SUMMARY | 2025-05-29 08:44 | XMS_ITS | Clinical Summary ---
Author Organization [facility] Address [address] [place] [address] Care Team Providers Care Air Bag Builder Name Role Phone Unavailable Primary Care [...] 01/19/2017 Fecal DNA 01/19/2017 Flexible Sigmoidoscopy 01/19/2017 Imm-Pneumococcal 50+ (1 of 1 - PCV) 01/19/2022 Imm-Zoster, Recombinant (1 of 2) 01/19/2022 Alcohol and Drug Screen 08/17/2024 Depression Annual Screen 08/17/2024 [id number] ( - season) 2025 07/23/2021, 11/28/2020, 10/31/2020 Imm-Influenza (#1) 2025 04/24/2021, 1 , 06/03/2019, Additional history exists Imm-DTaP/Tdap/Td (2 - Td or Tdap) 08/15/2029 019, 10/23/2008 Insurance [facility]
--- OUTSIDE RECORDS SUMMARY | 2025-05-29 08:44 | XMS_ITS | Encounter Summary ---
Author Organization [employer] Address [address] [facility] 7t [place] [address] Care Team Providers Care Steam Presser Name Role Phone Unavailable Primary Care Provider Unavailabl e Encounter Details Date Type Department Care Team (Latest Contact Info) Description 08/25/2019 Abstract [facility] CONVERSIONS Dental, Provider, DDS Social History Tobacco [...]
--- OUTSIDE RECORDS SUMMARY | 2025-05-29 08:44 | XMS_ITS | Encounter Summary ---
Author Organization [employer] Address [address] [facility] 7t [place] [address] Care Team Providers Care Watch Guard Gate Name Role Phone Unavailable Primary Care Provider Unavailabl e Encounter Details Date Type Department Care Team (Latest Contact Info) Description 11/20/2021 Abstract [facility] CONVERSIONS Dental, Provider, DDS Social History [...]
--- OUTSIDE RECORDS SUMMARY | 2025-05-29 08:44 | XMS_ITS | Encounter Summary ---
Author Organization [employer] Address [address] [facility] 7t [place] [address] Care Team Providers Care Cotton Roll Packer Name Role Phone Unavailable Primary Care Provider Unavailabl e Encounter Details Date Type Department Care Team (Latest Contact Info) Description 08/23/2018 Abstract [facility] CONVERSIONS Dental, Provider, DDS Social History Tobacco [...]
--- OUTSIDE RECORDS SUMMARY | 2025-05-29 08:44 | XMS_ITS | Clinical Summary ---
Author Organization [employer] Address [address] [place] [address] 7t [place] [address] Care Team Providers Care Metallography Teacher Name Role Phone Unavailable Primary Care Provider Unavailabl e Allergies No known active allergies Medications traZODone (Desyrel) 100 MG tablet Take 100 mg by mouth if needed at bedtime. 03/01/2023 Active Active Problems Problem Noted Date Diagnosed Date Dental calculus 05/15/2023 Localized gingival recession, minimal 05/15/2023 Social History Tobacco Use Types Packs/Day Years [...] Panel 1972 SDOH Screening 1972 Sigmoidoscopy 1972 Disability Screening 1972 Alcohol/Substance Use Screening 1984 Hepatitis C Screening 01/19/1990 Hepatitis B Vaccines (1 of 3 - 19+ 3-dose series) 01/19/1991 03/02/2008, 10/13/2007, 09/13/2007 Pneumococcal Vaccine: 50+ Years (1 of 1 - PCV) 01/19/2022 COVID-19 Vaccine (4 - 2024- season) 2025 07/23/2021, 11/28/2020, 10/31/2020 Influenza Vaccine (#1) 2025 , 06/30/2022, 04/24/2021, Additional history exists Dental [...] patient's age to complete this topic Meningococcal B Vaccine Aged Out No l onger eligible based on patient's age to complete [...] Procedure Name Priority Date/Time Associated Diagnosis Comments Full PROPHYLAXIS - ADULT Routine 025 8:00 AM EDT Dental calculus BITEWINGS - 4 RADIOGRAPHIC IMAGES Routine 11/16/2024 8:00 AM EDT Dental calculus Localized gingival recession, minimal PERIODIC ORAL EVALUATION - ESTABLISHED PATIENT Routine 11/16/2024 8:00 AM EDT Dental calculus Localized gingival recession, minimal Periodontosis Encounter for dental examination Acute gingival inflammation INTRAORAL - COMPLETE SERIES OF RADIOGRAPHIC IMAGES Routine 04/02/2023 8:30 AM EDT from Last 3 Months or Most Recently Relevant to Health Maintenance Insurance DENTAL - [facility] - [employer] [place]
--- OUTSIDE RECORDS SUMMARY | 2025-05-29 08:44 | XMS_ITS | Encounter Summary ---
Author Organization [employer] [facility] Address [address] [facility] 7 [place] [address] Care Team Providers Care Rod And Tube Straightener Name Role Phone Unavailable Primary Care Provider Unavailabl e Reason for Visit * Reason Onset Date Comments Appointment 10/30/2022 prior authoritzation 10/30/2022 Encounter Details Date Type Department Care Team ([facility] st Contact Info) Description 10/30/2022 Telephone [facility] ADULT DENTAL [address] [place], [place] [id number] Jose Bassett, DMD [address] [place] [address] Appointment; prior authoritzation Social History Tobacco Use [...]
[2025-06-03 17:29] LABS: Testosterone, Free 85.8 pg/mL (35.0-155.0)
== END 2025-05-29 08:04 | disposition home or self-care (01) ==
LOC: HO.LAB 08:03
PROVIDERS: PCP Internal Medicine; Visit Provider Internal Medicine
DX: F41.1 Generalized anxiety disorder (principal); N52.9 Male erectile dysfunction, unspecified; F33.0 Major depressive disorder, recurrent, mild; F10.982 Alcohol use, unspecified with alcohol-induced sleep disorder; Z79.899 Other long term (current) drug therapy; G47.00 Insomnia, unspecified
CPT/HCPCS: 36415; 84402; 84403; 96127

== ENCOUNTER 2025-05-29 08:03 | Outpatient (AMB) | payer BC, SELFPAY ==
--- NOTE | 2025-05-29 08:08 | A.OFFPC_ITS ---
Vital Signs 05/29/25 08:10 Height 5 ft 6 in Weight 160 lb BMI 25.8 BP 122/68 Blood Pressure Location Lt brachial Position Sitting Pulse 73 Pulse Source Pulse Oximeter Temp 97.3 F Temp Source Temporal Artery Scan Pulse Oximetry (%) 98 Oxygen Delivery Method Room Air Intake Visit Reasons: depression Intake Note: Patient is here to follow up on Depression. Hcc Coders Required: No Film Developing Machine Operator: Not Required per policy Accompanied by: Self / Same As Patient Allergies No Known Allergies (No Known Allergies*) Allergy (Verified 05/29/25 08:26) Medication List - Last Reconciled 05/29/25 by Courtney Osborne MD sertraline 25 mg PO DAILY 90 days trazodone 100 mg PO BEDTIME PRN 90 days Tobacco use date assessed: 05/29/25 Dental Screening Dental Screen Date: 11/24/24 HPI HPI Comments History of Present Illness Details The patient is a 55-year-old male presenting for follow-up on depression and insomnia. He has been on sertraline 25 mg for approximately four months, which is a low dose, and trazodone 100 mg as needed for sleep. The depression has shown significant improvement, as indicated by a PHQ-9 score of zero. The patient reports that he does not experience chest pain or shortness of breath. He is advised to continue sertraline until September, with a follow-up planned in November to reassess the need for continuation. The patient also reports issues with erectile dysfunction, for which a referral to urology is planned. A testosterone level check is recommended, which does not require fasting and can be done in the morning. Preventative care measures include a colonoscopy, which was repeated in May following an initial procedure in January. 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 Brother No problems noted. Social History Housing: House Are you a primary manager intensive care unit to a significant other at home: No Do you presently have visiting nurse or other home services: No Alcohol intake: current Alcohol intake frequency: a few times a week Alcohol type: beer and wine Patient Tobacco Use Status: Never used Tobacco e-Cigarette/Vaping Use: Never Used Second Hand Smoke Exposure: No service: No Current occupational status: employed Current occupational exposures/hazards: No Cognitive needs: No Hearing needs: No Vision needs: No Questionnaire PHQ-9 Over the last 2 weeks, how often have you been bothered by any of the following problems? 1. Little interest or pleasure in doing things: not at all 2. Feeling down, depressed, or hopeless: not at all 3. Trouble falling or staying asleep, or sleeping too much: not at all 4. Feeling tired or having little energy: not at all 5. Poor appetite or overeating: not at all 6. Feeling bad about yourself - or that you are a failure or have let yourself or your family down: not at all 7. Trouble concentrating on things, such as reading the newspaper or watching television: not at all 8. Moving or speaking so slowly that other people could have noticed. Or the opposite - being so fidgety or restless that you have been moving around a lot more than usual: not at all 9. Thoughts that you would be better off or of hurting yourself in some way: not at all Total score: 0 Depression Screening Interpretation: Negative Depression Screening Done: Yes 79377 - PHQ-9 Billing: Yes Source: Developed by Drs. Willi Gibbons, Davina Pope, Antoine Gross and colleagues, with an educational tray from [employer]. Thrive Questionnaire Date Thrive assessed: 11/24/24 I am a: Patient What is your living situation today?: I do not have a steady places to live I choose not to answer this question Within the past 12 months, did the food you bought not last and you didn't have the money to get more?: Often true Within the past 12 months, did you worry whether your food would run out before you got money to buy more?: Sometimes True Do you have trouble paying for medicines?: No Do you have trouble getting transportation to medical appointments?: No Do you have trouble paying your heating and electricity bill?: No Do you have trouble taking care of your child, family member or friend?: No Do you have trouble with day-to-day activities such as bathing, preparing meals, shopping, managing finances, etc.?: Yes Are you currently unemployed and looking for a job?: Yes Are you interested in more education?: No Please select the resources that you would like help with: Job search/training Currently or been in a relationship where the following occur: I choose not to answer THRIVE Score: 3 RODRIGUEZ-7 AMB Questionnaire RODRIGUEZ-7 Date RODRIGUEZ - 7 assessed: 05/29/25 Feeling nervous, anxious, or on edge: 0 = Not at all Not being able to stop or control worryin = Not at all Worrying too much about different things: 0 = Not at all Trouble relaxin = Not at all Being so restless that it is hard to sit still: 0 = Not at all Becoming easily annoyed or irritable: 0 = Not at all Feeling afraid as if something awful might happen: 0 = Not at all Total RODRIGUEZ-7 score (0-4 normal; 5-9 mild; 10-14 moderate; 15-21 severe): 0 Source: Developed by Drs. Willi Gibbons, Davina Pope, Antoine Gross and colleagues, with an educational tray from [employer]. RODRIGUEZ-7 Assessment Billing RODRIGUEZ-7 Assessment Tool: RODRIGUEZ-7 Assessment 10599 Review of Systems Const All systems reviewed & are unremarkable except as noted in HPI and below Card Denies chest pain at rest, Denies chest pain with activity, Denies edema, Denies irregular heart rhythm, Denies claudication, Denies dyspnea, Denies dyspnea on exertion, Denies orthopnea, Denies paroxysmal nocturnal dyspnea and Denies slow heart rate Resp Denies cough, Denies dyspnea and Denies dyspnea on exertion GI Denies abdominal pain, Denies change in bowel habits, Denies excessive flatus, Denies nausea and Denies vomiting Denies urinary hesitancy, Denies urinary incontinence and Denies urinary urgency Physical exam (Primary Care) Vital Signs: Last Vital Signs Temp 97.3 F 05/29/25 08:10 Pulse 73 05/29/25 08:10 BP 122/68 05/29/25 08:10 Pulse Ox 98 05/29/25 08:10 Oxygen Delivery Method Room Air 05/29/25 08:10 BMI result Body Mass Index 25.8 Tobacco/Smoking Status: Tobacco use Status Tobacco use date assessed 05/29/25 05/29/25 08:14 Patient Tobacco Use Status Never used Tobacco 05/29/25 08:08 e-Cigarette/Vaping Use Never Used 05/29/25 08:08 PHQ-9: PHQ-9 Score PHQ-9: Total score 0 05/29/25 08:14 Depression Screening Interpretation: Negative Thrive Assessment: Date of Thrive Assessment Date Thrive assessed 11/24/24 05/29/25 08:08 Currently or been in a relationship where the following occur: I choose not to answer Resp Effort & Inspection: normal respiratory effort Auscultation: clear to auscultation bilaterally Cardio Jugular venous distension: no JVD Rate: regular rate Rhythm: regular rhythm Heart sounds: S1 normal heart sound present and S2 normal heart sound present Extrem General: Yes full ROM Coding Level of Care Code Est Pt Level 4 (16199) Complex EM visit Add On G2211 Diagnoses Erectile dysfunction N52.9 Mild recurrent major depression F33.0 RODRIGUEZ (generalized anxiety disorder) F41.1 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 F10.982 Additional Codes PHQ-9 - 26641 - PHQ-9 Billing: Yes ([id number]) RODRIGUEZ-7 Assessment Billing - RODRIGUEZ-7 Assessment Tool: RODRIGUEZ-7 Assessment 12607 ([id number]) Time Spent (min) 20 Assessment & Plan Assessment & Plan (1) Erectile dysfunction: Code(s): N52.9 - Male erectile dysfunction, unspecified Category: Medical (2) Mild recurrent major depression: Code(s): F33.0 - Major depressive disorder, recurrent, mild Category: Medical (3) RODRIGUEZ (generalized anxiety disorder): Code(s): F41.1 - Generalized anxiety disorder Category: Medical (4) 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 1. Major depressive disorder, single episode, unspecified F32.9 The patient is advised to continue sertraline 25 mg until September, with a follow-up scheduled in November to evaluate the necessity of ongoing treatment. The PHQ-9 score indicates significant improvement, suggesting effective management of depression. 2. Insomnia, unspecified G47.00 Trazodone 100 mg is prescribed as needed for sleep, with the recommendation to avoid use on nights when the patient feels capable of sleeping without it. 3. Male erectile dysfunction, unspecified N52.9 A referral to urology is planned for further evaluation and management of erectile dysfunction. A testosterone level test is recommended to be conducted in the morning without fasting. Orders: Orders Testosterone, Free/Total Today N52.9 - Male erectile dysfunction, unspecified Referrals Urology Referral N52.9 - Male erectile dysfunction, unspecified
[2025-05-29 08:10] VITALS: BP 122/68; PULSE 73; TEMP 36.3; O2SAT 98; BMI 25.8
== END 2025-05-29 08:36 | disposition home or self-care (01) ==
LOC: HO.HMCH 08:04
PROVIDERS: PCP Internal Medicine; Visit Provider Internal Medicine
DX: N52.9 Male erectile dysfunction, unspecified (principal); F33.0 Major depressive disorder, recurrent, mild; F41.1 Generalized anxiety disorder; F10.982 Alcohol use, unspecified with alcohol-induced sleep disorder